=== PATIENT | male | born 1970 | race Asian ===

== ENCOUNTER 2020-11-01 11:15 | Outpatient (REF) | payer OTHER, SELFPAY ==
--- NOTE | ~2020-11-01 | XR_ITS ---
EXAMINATION: XR LUMBAR SPINE XR SACROILIAC JOINTS CLINICAL INFORMATION: Lower back pain. Left-sided sciatica. COMPARISON: None. TECHNIQUE: AP, lateral, and coned-down views of the lumbar spine. AP and bilateral Judet views of the sacroiliac joints. FINDINGS: Lumbar Spine: Normal vertebral body alignment. Minimal right-sided loss of vertebral body height at L4, which could represent an age-indeterminant endplate compression fracture. No additional loss of vertebral body height. Mild loss of intervertebral disc height with tiny endplate osteophytes at L5-S1. No lytic or blastic osseous lesion. No abnormal soft tissue calcification. Sacroiliac Joints: No acute fracture or dislocation. No joint space narrowing or marginal osteophytes. No sclerosis. No cystic change. No abnormal soft tissue calcification. XR/XR sacroiliac joint min 3V IMPRESSION: LUMBAR SPINE: Minimal right-sided loss of vertebral body height at L4, which could represent an age indeterminate endplate additional fracture. Minimal degenerative disc disease at L5-S1. SACROILIAC JOINTS: Unremarkable examination.
--- NOTE | ~2020-11-01 | XR_ITS ---
EXAMINATION: XR LUMBAR SPINE XR SACROILIAC JOINTS CLINICAL INFORMATION: Lower back pain. Left-sided sciatica. COMPARISON: None. TECHNIQUE: AP, lateral, and coned-down views of the lumbar spine. AP and bilateral Judet views of the sacroiliac joints. FINDINGS: Lumbar Spine: Normal vertebral body alignment. Minimal right-sided loss of vertebral body height at L4, which could represent an age-indeterminant endplate compression fracture. No additional loss of vertebral body height. Mild loss of intervertebral disc height with tiny endplate osteophytes at L5-S1. No lytic or blastic osseous lesion. No abnormal soft tissue calcification. Sacroiliac Joints: No acute fracture or dislocation. No joint space narrowing or marginal osteophytes. No sclerosis. No cystic change. No abnormal soft tissue calcification. XR/XR lumbar spine 2-3V IMPRESSION: LUMBAR SPINE: Minimal right-sided loss of vertebral body height at L4, which could represent an age indeterminate endplate additional fracture. Minimal degenerative disc disease at L5-S1. SACROILIAC JOINTS: Unremarkable examination.
[2020-11-01 12:01] LABS: MANUAL DIFF FLAG NO
[2020-11-01 12:10] LABS: Basophils Absolute Auto 0.1 X10*3/uL (0.0-0.2); Basophils Percent Auto 0.8 % (0-2); Eosinophils Absolute Auto 0.2 X10*3/uL (0.0-0.4); Eosinophils Percent Auto 2.3 % (0-4); Hematocrit 46.1 % (42-52); Hemoglobin 15.4 g/dl (14.0-18.0); Imm Gran Abs Auto 0.01 X10*3/uL (0.00-0.03); Imm Gran Pct Auto 0.2 % (0.0-0.4); Lymphocytes Absolute Auto 2.4 X10*3/uL (1.2-4.9); Lymphocytes Percent Auto 35.9 % (20-40); Mean Corpuscular HGB Conc 33.4 g/dl (31.0-36.0); Mean Corpuscular Hemoglobin 28.6 pg (27.0-33.0); Mean Corpuscular Volume 85.7 fL (80-98); Mean Platelet Volume 10.5 fL (9.4-12.4); Monocytes Absolute Auto 0.4 X10*3/uL (0.1-1.2); Monocytes Percent Auto 6.3 % (2-11); Neutrophils Absolute Auto 3.6 X10*3/uL (2.0-8.3); Neutrophils Percent Auto 54.5 % (45-73); Platelet Count 290 X10*3/uL (160-400); Red Blood Count 5.38 X10*6/uL (4.60-5.80); Red Cell Distribution Width 12.4 % (11.0-16.0); White Blood Count 6.6 X10*3/uL (4.8-10.8)
[2020-11-01 12:19] LABS: Glucose Urine UA NEG (NEG); Leukocyte Esterase Urine NEG (NEG); Nitrite Urine NEG (NEG); Specific Gravity - Urine 1.025 (1.005-1.025); Urine Blood TRACE (NEG); Urine Ketones NEG (NEG); Urine Protein NEG (NEG-TRACE)
[2020-11-01 12:25] LABS: Appearance Urine CLEAR; Color Urine YELLOW
[2020-11-01 12:38] LABS: Alanine Aminotransferase 35 U/L (0-40); Albumin Level 5.1 g/dL (3.5-5.0); Alkaline Phosphatase 99 U/L (39-117); Anion Gap 14 (12-20); Aspartate Amino Transferase 41 U/L (5-37); Blood Urea Nitrogen 14 mg/dL (9-16); Calcium 10.3 mg/dL (8.4-10.2); Carbon Dioxide 26 mmol/L (22-29); Chloride 110 mmol/L (96-108); Cholesterol 167 mg/dL; Estimated Glomerular Filt Rate > 60; Glucose Fasting 79 mg/dL (60-99); HDL Cholesterol 51 mg/dL; LDL Cholesterol Calculated 99 mg/dl; Sodium 146 mmol/L (135-145); Total Protein 8.1 g/dL (6.5-8.0); Triglycerides 89 mg/dL
[2020-11-01 13:00] LABS: Mucus Urine 2+ /LPF; RBC Urine 0-2 /HPF (0); Squamous Epithelial Cell Urine 2+ /LPF; TSH reflex Free T4 0.86 uIU/mL (0.32-4.0); WBC Urine 0-2 /HPF (0-4)
[2020-11-01 13:07] LABS: Erythrocyte Sedimentation Rate 3 MM/HR (0-15)
== END 2020-11-01 11:16 | disposition home or self-care (01) ==
LOC: HO.LAB 11:15
PROVIDERS: PCP Internal Medicine; Visit Provider Internal Medicine
DX: M54.42 Lumbago with sciatica, left side (principal); E78.1 Pure hyperglyceridemia; E66.3 Overweight; M10.9 Gout, unspecified
CPT/HCPCS: 36415; 72100; 72202; 80053; 80061; 81001; 84443; 84550; 85025; 85652

== ENCOUNTER → 2021-08-16 09:02 | Outpatient (BNVA) | payer OTHER, SELFPAY | PROVIDERS: PCP Internal Medicine; Referring Provider Internal Medicine; Visit Provider Nurse Practitioner Family | DX: Z13.89 Encounter for screening for other disorder (principal) ==

== ENCOUNTER 2021-10-25 08:08 | Outpatient (REF) | payer OTHER, SELFPAY ==
[2021-10-25 09:12] LABS: Alanine Aminotransferase 28 U/L (0-40); Albumin Level 4.7 g/dL (3.5-5.0); Alkaline Phosphatase 110 U/L (39-117); Anion Gap 12 (12-20); Aspartate Amino Transferase 24 U/L (5-37); Bilirubin Total 0.5 mg/dL (0.0-1.0); Blood Urea Nitrogen 12 mg/dL (9-16); Calcium 9.8 mg/dL (8.4-10.2); Carbon Dioxide 29 mmol/L (22-29); Chloride 105 mmol/L (96-108); Cholesterol 158 mg/dL; Estimated Glomerular Filt Rate > 60; Glucose Fasting 105 mg/dL (60-99); HDL Cholesterol 45 mg/dL; LDL Cholesterol Calculated 87 mg/dl; Potassium 4.5 mmol/L (3.3-5.1); Sodium 141 mmol/L (135-145); Total Protein 7.7 g/dL (6.5-8.0); Triglycerides 134 mg/dL; Uric Acid 7.9 mg/dL (3.4-7.0)
== END 2021-10-25 08:09 | disposition home or self-care (01) ==
LOC: HO.LAB 08:08
PROVIDERS: PCP Internal Medicine; Visit Provider Internal Medicine
DX: M10.9 Gout, unspecified (principal); E78.00 Pure hypercholesterolemia, unspecified
CPT/HCPCS: 36415; 80053; 80061; 84550

== ENCOUNTER 2022-03-06 08:39 | Day surgery (SDC) | payer OTHER, SELFPAY ==
[2022-03-06 09:14] VITALS: BP 157/79; PULSE 68; RESP 16; TEMP 36.9; O2SAT 100; BMI 30.2
--- NOTE | 2022-03-06 09:14 | P.CONAN_ITS ---
[facility] Active Problems Active Problems: All Active Problems (Updated 10/29/21 @ 10:42 by Jarad Jones MD) Elevated blood pressure reading (Acute) Articular gout (Acute) Hypertriglyceridemia (Acute) Overweight (BMI 25.0-29.9) (Acute) Left-sided low back pain with sciatica (Acute) Past Medical History Medical History Articular gout Hypertriglyceridemia Left-sided low back pain with sciatica Overweight (BMI 25.0-29.9) Family History Family History Mother No problems noted. Father No problems noted. 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 [employer] Cognitive needs: No Hearing needs: No Vision needs: No Meds Allergies Allergy/AdvReac Type Severity Reaction Status Date / Time No Known Allergies Allergy Verified 03/06/22 09:14 Exam Exam Date and Time: March 06, 2022 0914 Airway Mallampati Class: II TM Dist: >3cm Neck ROM: Full Denture: Upper Partial: Lower Loose/Missing/Broken Teeth: Yes, Upper and Lower Heart: RRR Lungs: CTA Assessment and Plan Assessment Anesthesia Assessment: Anesthesia Plan Discussed and Chart Reviewed Final Anesthetic Review History of Problems with Anesthesia: No NPO: Yes ASA Class: II Final Preanesthetic Review: Meds/Allgs Chart Reviewed, Consent Obtained/Reviewed and Anes Risks/Benef Reviewed Patient Risk: Low Procedure Risk: Low Anesthetic Plan Anesthetic Plan: MAC: Disposition: Standard PACU
--- NOTE | 2022-03-06 09:14 | P.HPSUR_ITS ---
Pre-Procedural Eval Section A Date of Service: 03/06/22 Section B Chief Complaint: screening Relevant Family History (Specify if Yes): No Relevant Social History: None Present Medications: see Short Stay Collaborative assessment Medical History: Significant History (Articular gout Hypertriglyceridemia Left- sided low back pain with sciatica Overweight (BMI 25.0-29.9)) History of Previous Operations: No relevant previous surgery Allergies: Allergies Allergy/AdvReac Type Severity Reaction Status Date / Time No Known Allergies Allergy Verified 03/06/22 09:14 Review of Systems Sugical H&P ROS: Negative: Constitution, Cardiovascular, Respiratory, Neurologic al, Psychiatric, Hem-Onc, Allergic/Immunologic, Gastrointestinal, Genitourinary, Musculoskeletal, Integumentary, Endocrine and Eyes/Ears/Nose/Throat Exam Surgical H&P Exam: Normal: HEENT, Normal: Heart, Normal: Lungs, Normal: Extremities, Normal: Abdomen, Normal: Skin and Normal: Neurological Plan Diagnosis/Plan: Unchanged I have reviewed the history and physical and performed a pertinent physical examination on my patient. No changes have occurred unless specified.
[2022-03-06] MEDS: Lactated Ringers 1,000 ML 80 ML IVCONT (09:59)
--- NOTE | 2022-03-06 10:12 | P.OP_ITS ---
Operative Note Operative Note Date of Service: 03/06/22 Narrative: Operative Information Procedure Description: Colonoscopy Indication: screening Anesthesia: MAC COLONOSCOPY Instrument: Olympus variable stiffness pediatric scope 190L Colonoscopy Monitoring: Vital signs and clinical assessment, continuous EKG monitoring, Pulse oximetry, Carbon Dioxide monitoring and blood pressure monitoring were done throughout the procedure. Colon withdrawal time was 8 minutes. Procedure: The patient was placed in the left lateral decubitis position and pre-procedure medications were administered. After a digital rectal examination of the ano-rectum, the video colonoscope was inserted into the rectum and advanced through the colon to the cecum/TI. The colonoscope was slowly withdrawn in a retrograde panoramic fashion and the colon mucosa was carefully examined including a retroflexed view of the rectum. Findings and interventions are described below. Procedure Difficulty: easy Findings: Terminal Ileum- lymphoid hyperplasia noted Cecum: 8-10 mm sessile polyp removed with cold forceps Ascending Colon: normal Transverse Colon -normal Descending Colon:normal Sigmoid Colon: normal Rectum: Retroflexion with small internal hemorrhoids, grade I, x3 diminutive polyps 2-4 mm removed with cold forceps Anorectum - normal Colon preparation: [place] Bowel Preparation Scale Right colon; 2 Transverse colon: 3 Left colon; 3 (0 = Unprepared colon segment with mucosa not seen due to solid stool that cannot be cleared. 1 = Portion of mucosa of the colon segment seen, but other areas of the colon segment not well seen due to staining, residual stool and/or opaque liquid. 2 = Minor amount of residual staining, small fragments of stool and/or opaque liquid, but mucosa of colon segment seen well. 3 = Entire mucosa of colon segment seen well with no residual staining, small fragments of stool or opaque liquid) Impression and Post Procedure Diagnosis: polyps internal hemorrhoids Plan: High fiber diet leaflet Avoid straining at stool, epsom salts and sitz bath, anusol supps or cream Repeat Colonoscopy in 5 years due to polyps (cecal polyp had adenomatous features by kudo markings) or earlier if clinically indicated Above findings were reviewed with the patient and relevant handouts were provided if indicated.
[2022-03-06 10:15] VITALS: BP 99/60; PULSE 69; RESP 16; TEMP 36.1; O2SAT 100
[2022-03-06 10:30] VITALS: BP 106/68; PULSE 69; RESP 18; TEMP 36.4; O2SAT 98
== END 2022-03-06 11:08 | disposition home or self-care (01) ==
PROVIDERS: PCP Internal Medicine; Visit Provider Internal Medicine Gastroenterology
PROC: 0DJD8ZZ Inspection of Lower Intestinal Tract, Via Natural or Artificial Opening Endoscopic (ICD-10-PCS; CPT 45378; principal; 2022-03-06 10:00)
DX: Z12.11 Encounter for screening for malignant neoplasm of colon (principal); D12.0 Benign neoplasm of cecum; K62.1 Rectal polyp; K64.0 First degree hemorrhoids; M10.9 Gout, unspecified; M54.42 Lumbago with sciatica, left side; E78.1 Pure hyperglyceridemia; E66.3 Overweight; Z68.28 Body mass index [BMI] 28.0-28.9, adult; Z79.899 Other long term (current) drug therapy
CPT/HCPCS: 45380; 88305

== ENCOUNTER 2022-03-15 10:33 | Outpatient (REF) | payer OTHER, SELFPAY ==
[2022-03-15 10:48] LABS: MANUAL DIFF FLAG NO
[2022-03-15 10:57] LABS: Basophils Absolute Auto 0.1 X10*3/uL (0.0-0.2); Basophils Percent Auto 1.1 % (0-2); Eosinophils Absolute Auto 0.2 X10*3/uL (0.0-0.4); Eosinophils Percent Auto 4.3 % (0-4); Hematocrit 47.4 % (42.0-52.0); Imm Gran Abs Auto 0.01 X10*3/uL (0.00-0.03); Imm Gran Pct Auto 0.2 % (0.0-0.4); Lymphocytes Absolute Auto 2.4 X10*3/uL (1.2-4.9); Lymphocytes Percent Auto 44.7 % (20-40); Mean Corpuscular HGB Conc 33.8 g/dl (31.0-36.0); Mean Corpuscular Hemoglobin 28.4 pg (27.0-33.0); Mean Platelet Volume 10.1 fL (9.4-12.4); Monocytes Absolute Auto 0.3 X10*3/uL (0.1-1.2); Monocytes Percent Auto 5.9 % (2-11); Neutrophils Absolute Auto 2.4 x10*3/uL (2.0-8.3); Neutrophils Percent Auto 43.8 % (45-73); Platelet Count 272 X10*3/uL (160-400); Red Blood Count 5.64 X10*6/uL (4.60-5.80); Red Cell Distribution Width 12.3 % (11.0-16.0); White Blood Count 5.4 X10*3/uL (4.8-10.8)
[2022-03-15 11:07] LABS: Estimated Average Glucose 128 mg/dL; Hemoglobin A1c % 6.1 %
[2022-03-15 11:11] LABS: Appearance Urine Clear; Color Urine Yellow; Glucose Urine UA Negative (Negative); Leukocyte Esterase Urine Negative (Negative); Nitrite Urine Negative (Negative); PH 5.5 (5.0-9.0); Urine Blood Negative (Negative); Urine Ketones Negative (Negative); Urine Protein Negative (Neg-Trace)
[2022-03-15 11:50] LABS: Alanine Aminotransferase 36 U/L (0-40); Albumin Level 4.6 g/dL (3.5-5.0); Alkaline Phosphatase 100 U/L (39-117); Anion Gap 15 (12-20); Aspartate Amino Transferase 28 U/L (5-37); Bilirubin Total 0.8 mg/dL (0.0-1.0); Blood Urea Nitrogen 10 mg/dL (9-16); Calcium 9.6 mg/dL (8.4-10.2); Carbon Dioxide 26 mmol/L (22-29); Chloride 105 mmol/L (96-108); Cholesterol 161 mg/dL; Estimated Glomerular Filt Rate > 60; Glucose Fasting 87 mg/dL (60-99); HDL Cholesterol 44 mg/dL; LDL Cholesterol Calculated 81 mg/dl; Potassium 3.9 mmol/L (3.3-5.1); Prostate Specific Antigen 0.68 ng/mL (<0.05-4.0); Sodium 142 mmol/L (135-145); TSH reflex Free T4 0.82 uIU/mL (0.32-4.0); Total Protein 7.4 g/dL (6.5-8.0); Triglycerides 183 mg/dL; Uric Acid 7.3 mg/dL (3.4-7.0); Vitamin D 25-OH Total 37.3 ng/mL (>30)
== END 2022-03-15 10:34 | disposition home or self-care (01) ==
LOC: HO.LAB 10:33
PROVIDERS: PCP Internal Medicine; Visit Provider Internal Medicine
DX: E78.00 Pure hypercholesterolemia, unspecified (principal); I10 Essential (primary) hypertension; M10.9 Gout, unspecified; E55.9 Vitamin D deficiency, unspecified; R73.9 Hyperglycemia, unspecified; N40.0 Benign prostatic hyperplasia without lower urinary tract symptoms; Z12.5 Encounter for screening for malignant neoplasm of prostate
CPT/HCPCS: 36415; 80053; 80061; 81003; 82306; 83036; 84153; 84443; 84550; 85025

== ENCOUNTER 2022-07-09 07:38 | Outpatient (REF) | payer OTHER, SELFPAY ==
[2022-07-09 07:47] LABS: MANUAL DIFF FLAG NO
[2022-07-09 08:39] LABS: Basophils Absolute Auto 0.1 X10*3/uL (0.0-0.2); Basophils Percent Auto 1.2 % (0-2); Eosinophils Absolute Auto 0.2 X10*3/uL (0.0-0.4); Eosinophils Percent Auto 4.1 % (0-4); Hematocrit 45.8 % (42.0-52.0); Hemoglobin 15.7 g/dl (14.0-18.0); Imm Gran Abs Auto 0.01 X10*3/uL (0.00-0.03); Imm Gran Pct Auto 0.2 % (0.0-0.4); Lymphocytes Absolute Auto 2.4 X10*3/uL (1.2-4.9); Lymphocytes Percent Auto 41.1 % (20-40); Mean Corpuscular HGB Conc 34.3 g/dl (31.0-36.0); Mean Corpuscular Hemoglobin 28.7 pg (27.0-33.0); Mean Corpuscular Volume 83.7 fL (80.0-98.0); Mean Platelet Volume 10.5 fL (9.4-12.4); Monocytes Absolute Auto 0.3 X10*3/uL (0.1-1.2); Monocytes Percent Auto 5.6 % (2-11); Neutrophils Absolute Auto 2.8 x10*3/uL (2.0-8.3); Neutrophils Percent Auto 47.8 % (45-73); Platelet Count 275 X10*3/uL (160-400); Red Blood Count 5.47 X10*6/uL (4.60-5.80); Red Cell Distribution Width 11.9 % (11.0-16.0); White Blood Count 5.9 X10*3/uL (4.8-10.8)
[2022-07-09 08:47] LABS: Estimated Average Glucose 137 mg/dL; Hemoglobin A1c % 6.4 %
[2022-07-09 09:18] LABS: Alanine Aminotransferase 36 U/L (0-40); Albumin Level 4.8 g/dL (3.5-5.0); Alkaline Phosphatase 90 U/L (39-117); Anion Gap 14 (12-20); Aspartate Amino Transferase 32 U/L (5-37); Bilirubin Total 0.7 mg/dL (0.0-1.0); Blood Urea Nitrogen 15 mg/dL (9-16); Carbon Dioxide 28 mmol/L (22-29); Chloride 107 mmol/L (96-108); Cholesterol 176 mg/dL; Estimated Glomerular Filt Rate > 60; Glucose Fasting 102 mg/dL (60-99); HDL Cholesterol 44 mg/dL; LDL Cholesterol Calculated 97 mg/dl; Potassium 4.6 mmol/L (3.3-5.1); Sodium 144 mmol/L (135-145); Total Protein 7.4 g/dL (6.5-8.0); Triglycerides 176 mg/dL; Uric Acid 8.1 mg/dL (3.4-7.0)
[2022-07-09 09:39] LABS: TSH reflex Free T4 1.11 uIU/mL (0.32-4.0); Vitamin D 25-OH Total 37.5 ng/mL (>30)
[2022-07-09 09:47] LABS: Appearance Urine Cloudy; Color Urine Yellow; Glucose Urine UA Negative (Negative); Leukocyte Esterase Urine Negative (Negative); Nitrite Urine Negative (Negative); PH 5.5 (5.0-9.0); Specific Gravity - Urine 1.015 (1.005-1.025); Urine Blood Negative (Negative); Urine Ketones Negative (Negative); Urine Protein Negative (Neg-Trace)
== END 2022-07-09 07:39 | disposition home or self-care (01) ==
LOC: HO.LAB 07:38
PROVIDERS: PCP Internal Medicine; Visit Provider Internal Medicine
DX: E55.9 Vitamin D deficiency, unspecified (principal); M10.9 Gout, unspecified; R30.0 Dysuria; E78.00 Pure hypercholesterolemia, unspecified; E11.9 Type 2 diabetes mellitus without complications; I10 Essential (primary) hypertension
CPT/HCPCS: 36415; 80053; 80061; 81003; 82306; 83036; 84443; 84550; 85025

== ENCOUNTER 2022-11-14 07:31 | Outpatient (REF) | payer OTHER, SELFPAY ==
[2022-11-14 07:49] LABS: MANUAL DIFF FLAG NO
[2022-11-14 08:24] LABS: Basophils Absolute Auto 0.1 X10*3/uL (0.0-0.2); Eosinophils Absolute Auto 0.2 X10*3/uL (0.0-0.4); Eosinophils Percent Auto 3.8 % (0-4); Hematocrit 45.3 % (42.0-52.0); Hemoglobin 15.5 g/dl (14.0-18.0); Imm Gran Abs Auto 0.02 X10*3/uL (0.00-0.03); Imm Gran Pct Auto 0.3 % (0.0-0.4); Lymphocytes Absolute Auto 2.4 X10*3/uL (1.2-4.9); Lymphocytes Percent Auto 40.2 % (20-40); Mean Corpuscular HGB Conc 34.2 g/dl (31.0-36.0); Mean Corpuscular Volume 84.8 fL (80.0-98.0); Mean Platelet Volume 10.7 fL (9.4-12.4); Monocytes Absolute Auto 0.4 X10*3/uL (0.1-1.2); Monocytes Percent Auto 6.3 % (2-11); Neutrophils Absolute Auto 2.8 x10*3/uL (2.0-8.3); Neutrophils Percent Auto 48.4 % (45-73); Platelet Count 237 X10*3/uL (160-400); Red Blood Count 5.34 X10*6/uL (4.60-5.80); White Blood Count 5.9 X10*3/uL (4.8-10.8)
[2022-11-14 09:07] LABS: Alanine Aminotransferase 49 U/L (0-40); Albumin Level 4.6 g/dL (3.5-5.0); Alkaline Phosphatase 120 U/L (39-117); Anion Gap 18 (12-20); Aspartate Amino Transferase 38 U/L (5-37); Bilirubin Total 0.8 mg/dL (0.0-1.0); Blood Urea Nitrogen 14 mg/dL (9-16); Calcium 9.8 mg/dL (8.4-10.2); Carbon Dioxide 22 mmol/L (22-29); Chloride 107 mmol/L (96-108); Cholesterol 194 mg/dL; Estimated Glomerular Filt Rate > 60; Glucose Fasting 87 mg/dL (60-99); HDL Cholesterol 50 mg/dL; LDL Cholesterol Calculated 125 mg/dl; Potassium 3.9 mmol/L (3.3-5.1); Sodium 143 mmol/L (135-145); Total Protein 7.7 g/dL (6.5-8.0); Triglycerides 95 mg/dL; Uric Acid 8.9 mg/dL (3.4-7.0)
[2022-11-14 09:12] LABS: Erythrocyte Sedimentation Rate 2 MM/HR (0-15)
[2022-11-14 09:13] LABS: Vitamin D 25-OH Total 43.6 ng/mL (>30)
[2022-11-14 09:52] LABS: Appearance Urine Clear; Color Urine Yellow; Glucose Urine UA Negative (Negative); Leukocyte Esterase Urine Negative (Negative); Nitrite Urine Negative (Negative); PH 5.5 (5.0-9.0); Specific Gravity - Urine 1.015 (1.005-1.025); Urine Blood Negative (Negative); Urine Ketones Negative (Negative); Urine Protein Negative (Neg-Trace)
== END 2022-11-14 07:32 | disposition home or self-care (01) ==
LOC: HO.LAB 07:31
PROVIDERS: PCP Internal Medicine; Visit Provider Internal Medicine
DX: M10.9 Gout, unspecified (principal); E55.9 Vitamin D deficiency, unspecified; I10 Essential (primary) hypertension; R30.0 Dysuria; E78.00 Pure hypercholesterolemia, unspecified
CPT/HCPCS: 36415; 80053; 80061; 81003; 82306; 84550; 85025; 85652

== ENCOUNTER 2022-11-20 11:19 | Outpatient (AMB) | payer OTHER, SELFPAY ==
[2022-11-20 11:21] VITALS: BP 130/70; PULSE 60; O2SAT 98; BMI 29.7
--- NOTE | 2022-11-20 11:21 | MHC.PC.OV ---
Vital Signs 11/20/22 11:21 Height 5 ft 5 in Weight 178 lb 6 oz BMI 29.7 BP 130/70 Blood Pressure Location Lt brachial Position Sitting Pulse 60 Pulse Source Pulse Oximeter Pulse Oximetry (%) 98 Oxygen Delivery Method Room Air Intake Visit Reasons: 4 month f/u Cyber Legal Advisor Required: No Accompanied by: Self / Same As Patient Allergies No Known Allergies Allergy (Verified 11/20/22 11:26) Medication List - Last Reconciled 11/20/22 by Jarad Jones MD gemfibrozil 600 mg PO BEDTIME 90 days Tobacco use date assessed: 11/20/22 Dental Screening Dental Screen Date: 11/20/22 Did you have a dental visit in the last 12 months?: No Did you have a dental problem in the last 6 months where you did not have access to dental care?: No Was dental information given to patient?: Patient has dentist HPI 4 month f/u HPI Details Patient comes in today for his follow up visit States that he feels okay He denies any headaches or dizziness Denies any chest pains, no SOB No nausea/vomiting, no abdominal pain No change in bowel habits noted Was on vacation in the [facility] for about 3 weeks recently - has gained a lot of weight as a result States that he still has the nodular lesion on the dorsal aspect of his left wrist that he states has been there for a few months now States that the nodule does not really hurt although it feels slightly sore at times Had his follow up labs done last week - to discuss his results [facility] Medical History Articular gout Hypertriglyceridemia Impaired fasting glucose Left-sided low back pain with sciatica Overweight (BMI 25.0-29.9) Tubular adenoma Surgical History H/O colonoscopy Family History Mother No problems noted. Father No problems noted. 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 1. Little interest or pleasure in doing things: not at all 2. Feeling down, depressed, or hopeless: not at all 3. Trouble falling or staying asleep, or sleeping too much: not at all 4. Feeling tired or having little energy: not at all 5. Poor appetite or overeating: not at all 6. Feeling bad about yourself - or that you are a failure or have let yourself or your family down: not at all 7. Trouble concentrating on things, such as reading the newspaper or watching television: not at all 8. Moving or speaking so slowly that other people could have noticed. Or the opposite - being so fidgety or restless that you have been moving around a lot more than usual: not at all 9. Thoughts that you would be better off or of hurting yourself in some way: not at all Total score: 0 Depression Screening Interpretation: Negative 63166 - PHQ-9 Billing: Yes Source: Developed by Drs. Torsten Gill, Jill Powell, Joesph Francisco and colleagues, with an educational lenny from [email or web address] Thrive Questionnaire Date Thrive assessed: 11/20/22 I am a: Patient What is your living situation today?: I have a steady place to live Within the past 12 months, did the food you bought not last and you didn't have the money to get more?: Never true Within the past 12 months, did you worry whether your food would run out before you got money to buy more?: Never true Do you have trouble paying for medicines?: No Do you have trouble getting transportation to medical appointments?: No Do you have trouble paying your heating and electricity bill?: No Do you have trouble taking care of your child, family member or friend?: No Do you have trouble with day-to-day activities such as bathing, preparing meals, shopping, managing finances, etc.?: No Are you currently unemployed and looking for a job?: No Are you interested in more education?: No Please select the resources that you would like help with: None Currently or been in a relationship where the following occur: no concerns reported AUDIT C Alcohol Use Questionnaire (AUDIT-C) 1. How often do you have a drink containing alcohol?: Never 3. How often do you have six or more drinks on one occasion?: Never Total Score: 0 Score Reviewed/Action Taken: Yes JULISSA-7 AMB Questionnaire JULISSA-7 Date JULISSA - 7 assessed: 11/20/22 Feeling nervous, anxious, or on edge: 0 = Not at all Not being able to stop or control worryin = Not at all Worrying too much about different things: 0 = Not at all Trouble relaxin = Not at all Being so restless that it is hard to sit still: 0 = Not at all Becoming easily annoyed or irritable: 0 = Not at all Feeling afraid as if something awful might happen: 0 = Not at all Total JULISSA-7 score (0-4 normal; 5-9 mild; 10-14 moderate; 15-21 severe): 0 Source: Developed by Drs. Torsten Gill, Jill Powell, Joesph Francisco and colleagues, with an educational lenny from [employer] ([employer]). Review of Systems Const Reports difficulty sleeping (at times - works nights), Denies fatigue, Denies fever(s) and Denies headache(s) ENT Denies dysphagia, Denies dizziness, Denies otalgia, Denies headache(s), Denies neck pain and Denies sore throat Card Denies chest pain, Denies palpitations and Denies dyspnea Resp Denies cough and Denies dyspnea GI Denies abdominal pain, Denies constipation, Denies dysphagia, Denies heartburn, Denies diarrhea, Denies nausea and Denies vomiting Denies dysuria, Denies nocturia and Denies urinary frequency Musc Reports back pain (on and off, over the lower back; mild) and Denies neck pain Skin/Breast Details: (+) nodular lesion on the dorsal aspect of the left wrist Neuro Denies dizziness and Denies headache(s) Endo Denies fatigue and Denies palpitations Physical exam (Primary Care) Vital Signs: Oxygen Delivery Method Room Air 11/20/22 11:21 BMI result Body Mass Index 29.7 Tobacco/Smoking Status: Tobacco use Status Tobacco use date assessed 07/17/22 07/17/22 10:08 Patient Tobacco Use Status Never used Tobacco 07/17/22 10:05 e-Cigarette/Vaping Use Never Used 07/17/22 10:08 Depression Screening Interpretation: Negative Thrive Assessment: Date of Thrive Assessment Date Thrive assessed 07/17/22 07/17/22 10:08 Currently or been in a relationship where the following occur: no concerns reported Const General: no acute distress and alert HENMT Ears: TM's normal bilaterally and EAC's normal Throat: Yes posterior oropharynx normal and Yes tonsils normal (no TP congestion) Neck Neck: Yes no lymphadenopathy and Yes supple Resp Auscultation: clear to auscultation bilaterally, no rales and no wheezes Cardio Rate: regular rate Rhythm: regular rhythm Heart sounds: no murmurs GI Palpation (GI): Soft to palpation and nontender Auscultation: normal bowel sounds Back/Spine/Pelvis Thoracic/Lumbar Spine: lumbar spinal tenderness (mild) Skin Other: (+) soft, non-tender, nodular lesion on the dorsal aspect of the left wrist Extrem General: Yes no clubbing, cyanosis or edema Results Reviewed Results Reviewed: Laboratory Tests 11/14/22 11/14/22 11/14/22 07:40 07:47 07:47 WBC 5.9 Hgb 15.5 Hct 45.3 Plt Count 237 ESR 2 Sodium Potassium Creatinine Estimated GFR Fasting Glucose Uric Acid Calcium AST ALT Triglycerides Cholesterol LDL Cholesterol, Calc HDL Cholesterol 25-OH Vitamin D Total Ur Specific [place] 1.015 Urine Protein Negative Urine Glucose (UA) Negative Urine Blood Negative 11/14/22 07:47 WBC Hgb Hct Plt Count ESR Sodium 143 Potassium 3.9 Creatinine 0.80 Estimated GFR > 60 Fasting Glucose 87 Uric Acid 8.9 H Calcium 9.8 AST 38 H ALT 49 H Triglycerides 95 Cholesterol 194 LDL Cholesterol, Calc 125 HDL Cholesterol 50 25-OH Vitamin D Total 43.6 Ur Specific [place] Urine Protein Urine Glucose (UA) Urine Blood Assessment and Plan Assessment & Plan (1) Hypertriglyceridemia: Code(s): E78.1 - Pure hyperglyceridemia Plan: Results of his labs done last week reviewed and discussed with patient - is cautioned that his cholesterol numbers have again increased from previous, especially his LDL cholesterol, which has gone up by over 25 points Reinforced low cholesterol diet Continue Gemfibrozil 600 mg Q HS for now Will recheck his labs in 4 months for follow up (2) Elevated blood pressure reading: Code(s): R03.0 - Elevated blood-pressure reading, without diagnosis of hypertension Plan: Reinforced low sodium diet; goal is systolic BP of 120 mm or less Patient is advised to continue monitoring his blood pressure regularly (3) Impaired fasting glucose: Code(s): R73.01 - Impaired fasting glucose Plan: HgbA1c was at 6.4% when last checked a few months ago Reinforced low calorie diet/exercise as tolerated His FBS appears to have improved from previous and is at 87 mg/dl on his recent labs Will recheck his FBS and HgbA1c in 4 months for follow up (4) Articular gout: Code(s): M10.9 - Gout, unspecified Plan: Cautioned that his serum uric acid level has increased again to 8.9 on his recent labs (was at 7.3 previously) Reinforced low purine diet Advised that the nodular lesion on his left wrist does not appear to be due to gout and may actually be a sebaceous or dermoid cyst Have considered starting him on urate-lowering Rx previously if his numbers do not improve or if patient starts experiencing frequent flare ups of gout As his uric acid level has gone back up significantly again, will try starting him on Mitigare 0.6 mg QD Will recheck his serum uric acid level in 4 months for follow up (5) Left-sided low back pain with sciatica: Code(s): M54.42 - Lumbago with sciatica, left side Qualifiers: Chronicity: unspecified Sciatica laterality: sciatica of left side Qualified Code(s): M54.42 - Lumbago with sciatica, left side Plan: Lumbar spine x-rays done last year revealed (+) minimal degenerative disc disease at L5-S1; SI joint x-rays were normal Went to physical therapy for a while, with (+) improvement of his symptoms States that his lower back has not been bothering him lately Will follow up with physical therapy as scheduled or as needed (goes to [facility] in [place] for his physical therapy - closer to home) States that he previously bought a massager and has been using it on his lower back lately; states that is seems to be helping a lot (6) Overweight (BMI 25.0-29.9): Code(s): E66.3 - Overweight Plan: Reinforced diet/exercise as tolerated/lose weight - has gained some weight again since his last visit, as he was just recently on vacation in the [facility] for 3 weeks Plan Follow up in 4 months Orders: Orders Comprehensive [place]. Panel Fast 4 Months E78.00 - Pure hypercholesterolemia, unspecified Hemoglobin A1c 4 Months R73.01 - Impaired fasting glucose Lipid Panel 4 Months E78.00 - Pure hypercholesterolemia, unspecified Complete Blood Count Auto Diff 4 Months I10 - Essential (primary) hypertension TSH reflex Free T4 4 Months E78.00 - Pure hypercholesterolemia, unspecified Uric Acid 4 Months M10.9 - Gout, unspecified Vitamin D 25-OH Total 4 Months E55.9 - Vitamin D deficiency, unspecified UA CC w/rflx Micro + Cult 4 Months R30.0 - Dysuria Medications: New colchicine (gout) (Mitigare) 0.6 mg PO DAILY 90 days 90 caps 1RF M10.9 - Gout, unspecified Coding Level of Care Code Est Pt Level 4 (19202) Diagnoses Hypertriglyceridemia E78.1 Elevated blood pressure reading R03.0 Impaired fasting glucose R73.01 Articular gout M10.9 Left-sided low back pain with sciatica M54.42 Chronicity: unspecified Sciatica laterality: sciatica of left side Overweight (BMI 25.0-29.9) E66.3
== END 2022-11-20 11:58 | disposition home or self-care (01) ==
PROVIDERS: PCP Internal Medicine; Visit Provider Internal Medicine
DX: E78.1 Pure hyperglyceridemia (principal); R03.0 Elevated blood-pressure reading, without diagnosis of hypertension; R73.01 Impaired fasting glucose; M10.9 Gout, unspecified; M54.42 Lumbago with sciatica, left side; E66.3 Overweight
CPT/HCPCS: 99214

== ENCOUNTER 2023-03-27 07:55 | Outpatient (REF) | payer OTHER, SELFPAY ==
[2023-03-27 08:09] LABS: MANUAL DIFF FLAG NO
[2023-03-27 08:56] LABS: Estimated Average Glucose 123 mg/dL; Hemoglobin A1c % 5.9 % (<6.0)
[2023-03-27 09:06] LABS: Basophils Absolute Auto 0.1 X10*3/uL (0.0-0.2); Basophils Percent Auto 1.1 % (0-2); Eosinophils Absolute Auto 0.2 X10*3/uL (0.0-0.4); Eosinophils Percent Auto 4.5 % (0-4); Hematocrit 49.4 % (42.0-52.0); Hemoglobin 16.7 g/dl (14.0-18.0); Imm Gran Abs Auto 0.01 X10*3/uL (0.00-0.03); Imm Gran Pct Auto 0.2 % (0.0-0.4); Lymphocytes Absolute Auto 2.2 X10*3/uL (1.2-4.9); Lymphocytes Percent Auto 41.2 % (20-40); Mean Corpuscular HGB Conc 33.8 g/dl (31.0-36.0); Mean Corpuscular Hemoglobin 28.6 pg (27.0-33.0); Mean Corpuscular Volume 84.7 fL (80.0-98.0); Mean Platelet Volume 10.9 fL (9.4-12.4); Monocytes Absolute Auto 0.3 X10*3/uL (0.1-1.2); Monocytes Percent Auto 5.4 % (2-11); Neutrophils Absolute Auto 2.6 x10*3/uL (2.0-8.3); Neutrophils Percent Auto 47.6 % (45-73); Platelet Count 277 X10*3/uL (160-400); Red Blood Count 5.83 X10*6/uL (4.60-5.80); Red Cell Distribution Width 12.4 % (11.0-16.0); White Blood Count 5.4 X10*3/uL (4.8-10.8)
[2023-03-27 09:14] LABS: Appearance Urine Clear; Color Urine Yellow; Glucose Urine UA Negative (Negative); Leukocyte Esterase Urine Negative (Negative); Nitrite Urine Negative (Negative); PH 6.5 (5.0-9.0); Specific Gravity - Urine 1.015 (1.005-1.025); Urine Blood Negative (Negative); Urine Ketones Negative (Negative); Urine Protein Negative (Neg-Trace)
[2023-03-27 09:15] LABS: Alanine Aminotransferase 29 U/L (0-40); Albumin Level 4.8 g/dL (3.5-5.0); Alkaline Phosphatase 94 U/L (39-117); Anion Gap 11 (12-20); Aspartate Amino Transferase 33 U/L (5-37); Bilirubin Total 0.9 mg/dL (0.0-1.0); Blood Urea Nitrogen 10 mg/dL (9-16); Calcium 9.9 mg/dL (8.4-10.2); Carbon Dioxide 29 mmol/L (22-29); Chloride 108 mmol/L (96-108); Cholesterol 142 mg/dL (<200); Estimated Glomerular Filt Rate > 60; Glucose Fasting 89 mg/dL (60-99); HDL Cholesterol 49 mg/dL (>40); LDL Cholesterol Calculated 74 mg/dL (<100); Potassium 4.3 mmol/L (3.3-5.1); Sodium 144 mmol/L (135-145); Triglycerides 96 mg/dL (<150); Uric Acid 8.4 mg/dL (3.4-7.0)
[2023-03-27 09:35] LABS: Vitamin D 25-OH Total 40.1 ng/mL (>30)
== END 2023-03-27 07:56 | disposition home or self-care (01) ==
LOC: HO.LAB 07:55
PROVIDERS: PCP Internal Medicine; Visit Provider Internal Medicine
DX: E78.00 Pure hypercholesterolemia, unspecified (principal); R73.01 Impaired fasting glucose; E55.9 Vitamin D deficiency, unspecified; I10 Essential (primary) hypertension; R30.0 Dysuria; M10.9 Gout, unspecified
CPT/HCPCS: 36415; 80053; 80061; 81003; 82306; 83036; 84443; 84550; 85025

== ENCOUNTER 2023-05-19 14:58 | Outpatient (AMB) | payer OTHER, SELFPAY ==
[2023-05-19 15:22] VITALS: BP 142/94; PULSE 69; O2SAT 97
--- NOTE | 2023-05-19 15:22 | MHC.PC.OV ---
Vital Signs 05/19/23 15:22 Height 5 ft 5 in Weight 180 lb 6 oz BMI 30.0 BP 142/94 H Blood Pressure Location Lt brachial Position Sitting Pulse 69 Pulse Source Pulse Oximeter Pulse Oximetry (%) 97 Oxygen Delivery Method Room Air Intake Visit Reasons: 4 month f/u Cert Occupational Therapy Asst Required: No Accompanied by: Self / Same As Patient Allergies No Known Allergies Allergy (Verified 05/19/23 16:03) Medication List - Last Reconciled 05/19/23 by Jarad Jones MD gemfibrozil 600 mg PO BEDTIME 90 days Tobacco use date assessed: 05/19/23 Dental Screening Dental Screen Date: 05/19/23 Did you have a dental visit in the last 12 months?: No Did you have a dental problem in the last 6 months where you did not have access to dental care?: No Was dental information given to patient?: No HPI 4 month f/u HPI Details Patient comes in today for his follow up visit States that he feels okay He denies any headaches or dizziness Denies any chest pains, no SOB No nausea/vomiting, no abdominal pain No change in bowel habits noted Had his follow up labs done last month - to discuss his results [facility] Medical History Impaired fasting glucose Tubular adenoma Overweight (BMI 25.0-29.9) Left-sided low back pain with sciatica Hypertriglyceridemia Articular gout Surgical History H/O colonoscopy Family History Mother No problems noted. Father No problems noted. 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 1. Little interest or pleasure in doing things: not at all 2. Feeling down, depressed, or hopeless: not at all 3. Trouble falling or staying asleep, or sleeping too much: not at all 4. Feeling tired or having little energy: not at all 5. Poor appetite or overeating: not at all 6. Feeling bad about yourself - or that you are a failure or have let yourself or your family down: not at all 7. Trouble concentrating on things, such as reading the newspaper or watching television: not at all 8. Moving or speaking so slowly that other people could have noticed. Or the opposite - being so fidgety or restless that you have been moving around a lot more than usual: not at all 9. Thoughts that you would be better off or of hurting yourself in some way: not at all Total score: 0 Depression Screening Interpretation: Negative Depression Screening Done: Yes 13814 - PHQ-9 Billing: Yes Source: Developed by Drs. Torsten Gill, Jill Powell, Joesph Francisco and colleagues, with an educational lenny from [employer]. Thrive Questionnaire Date Thrive assessed: 05/19/23 I am a: Patient What is your living situation today?: I have a steady place to live Within the past 12 months, did the food you bought not last and you didn't have the money to get more?: Never true Within the past 12 months, did you worry whether your food would run out before you got money to buy more?: Never true Do you have trouble paying for medicines?: No Do you have trouble getting transportation to medical appointments?: No Do you have trouble paying your heating and electricity bill?: No Do you have trouble taking care of your child, family member or friend?: No Do you have trouble with day-to-day activities such as bathing, preparing meals, shopping, managing finances, etc.?: No Are you currently unemployed and looking for a job?: No Are you interested in more education?: No Please select the resources that you would like help with: None Currently or been in a relationship where the following occur: no concerns reported THRIVE Score: 0 AUDIT C Alcohol Use Questionnaire (AUDIT-C) 1. How often do you have a drink containing alcohol?: Never 3. How often do you have six or more drinks on one occasion?: Never Total Score: 0 Score Reviewed/Action Taken: Yes JULISSA-7 AMB Questionnaire JULISSA-7 Date JULISSA - 7 assessed: 05/19/23 Feeling nervous, anxious, or on edge: 0 = Not at all Not being able to stop or control worryin = Not at all Worrying too much about different things: 0 = Not at all Trouble relaxin = Not at all Being so restless that it is hard to sit still: 0 = Not at all Becoming easily annoyed or irritable: 0 = Not at all Feeling afraid as if something awful might happen: 0 = Not at all Total JULISSA-7 score (0-4 normal; 5-9 mild; 10-14 moderate; 15-21 severe): 0 Source: Developed by Drs. Torsten Gill, Jill Powell, Joesph Francisco and colleagues, with an educational lenny from [employer]. Review of Systems Const Denies chills, Reports difficulty sleeping (at times - works nights), Denies fatigue, Denies fever(s) and Denies headache(s) ENT Denies dysphagia, Denies dizziness, Denies otalgia, Denies headache(s), Denies neck pain, Denies odynophagia and Denies sore throat Card Denies chest pain, Denies palpitations and Denies dyspnea Resp Denies cough and Denies dyspnea GI Denies abdominal pain, Denies constipation, Denies dysphagia, Denies heartburn, Denies diarrhea, Denies nausea, Denies odynophagia and Denies vomiting Denies dysuria, Denies nocturia and Denies urinary frequency Musc Reports back pain (on and off, over the lower back; mild), Denies arthralgias and Denies neck pain Skin/Breast Details: (+) nodular lesion on the dorsal aspect of the left wrist Denies rash Neuro Denies dizziness and Denies headache(s) Endo Denies fatigue and Denies palpitations Physical exam (Primary Care) Vital Signs: Last Vital Signs Pulse 69 05/19/23 15:22 BP 142/94 H 05/19/23 15:22 Pulse Ox 97 05/19/23 15:22 Oxygen Delivery Method Room Air 05/19/23 15:22 BMI result Body Mass Index 30.0 Tobacco/Smoking Status: Tobacco use Status Tobacco use date assessed 05/19/23 05/19/23 15:26 Patient Tobacco Use Status Never used Tobacco 05/19/23 15:26 e-Cigarette/Vaping Use Never Used 05/19/23 15:26 PHQ-9: PHQ-9 Score PHQ-9: Total score 0 05/19/23 15:26 Depression Screening Interpretation: Negative Thrive Assessment: Date of Thrive Assessment Date Thrive assessed 05/19/23 05/19/23 15:26 Currently or been in a relationship where the following occur: no concerns reported Const General: no acute distress and alert HENMT Ears: TM's normal bilaterally and EAC's normal Throat: Yes posterior oropharynx normal and Yes tonsils normal (no TP congestion) Neck Neck: Yes no lymphadenopathy and Yes supple Resp Auscultation: clear to auscultation bilaterally, no rales and no wheezes Cardio Rate: regular rate Rhythm: regular rhythm Heart sounds: no murmurs GI Palpation (GI): Soft to palpation and nontender Auscultation: normal bowel sounds Back/Spine/Pelvis Thoracic/Lumbar Spine: lumbar spinal tenderness (mild) Skin Other: (+) soft, non-tender, nodular lesion on the dorsal aspect of the left wrist Extrem General: Yes no clubbing, cyanosis or edema Results Reviewed Results Reviewed: Laboratory Tests 03/27/23 03/27/23 03/27/23 08:04 08:08 08:08 WBC 5.4 Hgb 16.7 Hct 49.4 Plt Count 277 Sodium 144 Potassium 4.3 Creatinine 0.84 Estimated GFR > 60 Fasting Glucose 89 Hemoglobin A1c % 5.9 Uric Acid 8.4 H Calcium 9.9 AST 33 ALT 29 Triglycerides 96 Cholesterol 142 LDL Cholesterol, Calc 74 HDL Cholesterol 49 25-OH Vitamin D Total 40.1 TSH 0.60 Ur Specific [place] 1.015 Urine Protein Negative Urine Glucose (UA) Negative Urine Ketones Negative Urine Blood Negative Urine Nitrite Negative Ur Leukocyte Esterase Negative Assessment and Plan Assessment & Plan (1) Hypertriglyceridemia: Code(s): E78.1 - Pure hyperglyceridemia Plan: Results of his labs done last month reviewed and discussed with patient - his cholesterol numbers have all improved significantly from previous Reinforced low cholesterol diet Continue Gemfibrozil 600 mg Q HS Will recheck his labs and fasting lipids in 4 months for follow up (2) Elevated blood pressure reading: Code(s): R03.0 - Elevated blood-pressure reading, without diagnosis of hypertension Plan: Reinforced low sodium diet; goal is systolic BP of 120 mm or less His BP was initially high today and repeat BP is even higher at 160/100 mm - patient states that he works 3rd shift and had a meeting earlier today so he hardly had any sleep since yesterday and that this may be contributing to his high BP right now Patient is reminded to continue monitoring his blood pressure regularly Will also have our nurse navigator reach out to him and help him recheck his blood pressure in a few weeks (3) Impaired fasting glucose: Code(s): R73.01 - Impaired fasting glucose Plan: HgbA1c was at 5.9% on his labs done last month (was at 6.4% when last checked a few months previous to that) Reinforced low calorie diet/exercise as tolerated Will recheck his FBS and HgbA1c in 4 months for follow up (4) Articular gout: Code(s): M10.9 - Gout, unspecified Plan: Cautioned that his serum uric acid level is still higher than normal at 8.4 on his labs done last month; was at 8.9 previously Reinforced low purine diet Advised that the nodular lesion on his left wrist does not appear to be due to gout and may actually be a sebaceous or dermoid cyst Have considered starting him on urate-lowering Rx previously if his numbers do not improve or if patient starts experiencing frequent flare ups of gout He was started on Mitigare at his last visit and states that he took it for a month before self-discontinuing his med Will recheck his serum uric acid level in 4 months for follow up (5) Left-sided low back pain with sciatica: Code(s): M54.42 - Lumbago with sciatica, left side Qualifiers: Chronicity: unspecified Sciatica laterality: sciatica of left side Qualified Code(s): M54.42 - Lumbago with sciatica, left side Plan: Lumbar spine x-rays done last year revealed (+) minimal degenerative disc disease at L5-S1; SI joint x-rays were normal Went to physical therapy for a while, with (+) improvement of his symptoms States that his lower back has not been bothering him lately Will follow up with physical therapy as scheduled or as needed (goes to [facility] in [place] for his physical therapy - closer to home) States that he previously bought a massager and has been using it on his lower back lately; states that is seems to be helping a lot (6) Overweight (BMI 25.0-29.9): Code(s): E66.3 - Overweight Plan: Reinforced diet/exercise as tolerated/lose weight Plan Follow up in 4 months Orders: Orders Lipid Panel 4 Months E78.00 - Pure hypercholesterolemia, unspecified Complete Blood Count Auto Diff 4 Months D64.9 - Anemia, unspecified UA CC w/rflx Micro + Cult 4 Months R30.0 - Dysuria Hemoglobin A1c 4 Months R73.01 - Impaired fasting glucose Comprehensive [place]. Panel Fast 4 Months E78.00 - Pure hypercholesterolemia, unspecified Uric Acid 4 Months M10.9 - Gout, unspecified Vitamin D 25-OH Total 4 Months E55.9 - Vitamin D deficiency, unspecified Coding Level of Care Code Est Pt Level 4 (51202) Diagnoses Hypertriglyceridemia E78.1 Elevated blood pressure reading R03.0 Impaired fasting glucose R73.01 Articular gout M10.9 Left-sided low back pain with left-sided sciatica, unspecified chronicity M54.42 Chronicity: unspecified Sciatica laterality: sciatica of left side Overweight (BMI 25.0-29.9) E66.3
== END 2023-05-19 16:16 | disposition home or self-care (01) ==
PROVIDERS: PCP Internal Medicine; Visit Provider Internal Medicine
DX: E78.1 Pure hyperglyceridemia (principal); R03.0 Elevated blood-pressure reading, without diagnosis of hypertension; R73.01 Impaired fasting glucose; M10.9 Gout, unspecified; M54.42 Lumbago with sciatica, left side; E66.3 Overweight
CPT/HCPCS: 99214

== ENCOUNTER 2023-09-12 07:34 | Outpatient (REF) | payer OTHER, SELFPAY ==
[2023-09-12 07:55] LABS: MANUAL DIFF FLAG NO
[2023-09-12 08:41] LABS: Appearance Urine Clear; Color Urine Yellow; Glucose Urine UA Negative (Negative); Leukocyte Esterase Urine Negative (Negative); Nitrite Urine Negative (Negative); Specific Gravity - Urine 1.015 (1.005-1.025); Urine Blood Negative (Negative); Urine Ketones Negative (Negative); Urine Protein Negative (Neg-Trace)
[2023-09-12 08:43] LABS: Basophils Absolute Auto 0.1 X10*3/uL (0.0-0.2); Basophils Percent Auto 1.1 % (0-2); Eosinophils Absolute Auto 0.4 X10*3/uL (0.0-0.4); Eosinophils Percent Auto 6.7 % (0-4); Hematocrit 47.2 % (42.0-52.0); Imm Gran Abs Auto 0.03 X10*3/uL (0.00-0.03); Imm Gran Pct Auto 0.6 % (0.0-0.4); Lymphocytes Absolute Auto 2.6 X10*3/uL (1.2-4.9); Lymphocytes Percent Auto 48.6 % (20-40); Mean Corpuscular HGB Conc 33.9 g/dl (31.0-36.0); Mean Corpuscular Hemoglobin 28.8 pg (27.0-33.0); Mean Platelet Volume 10.9 fL (9.4-12.4); Monocytes Absolute Auto 0.3 X10*3/uL (0.1-1.2); Monocytes Percent Auto 6.2 % (2-11); Neutrophils Percent Auto 36.8 % (45-73); Platelet Count 269 X10*3/uL (160-400); Red Blood Count 5.55 X10*6/uL (4.60-5.80); Red Cell Distribution Width 12.5 % (11.0-16.0); White Blood Count 5.4 X10*3/uL (4.8-10.8)
[2023-09-12 09:14] LABS: Estimated Average Glucose 128 mg/dL; Hemoglobin A1c % 6.1 % (<6.0)
[2023-09-12 09:23] LABS: Alanine Aminotransferase 27 U/L (0-40); Albumin Level 4.6 g/dL (3.5-5.0); Alkaline Phosphatase 86 U/L (39-117); Anion Gap 14 (12-20); Aspartate Amino Transferase 29 U/L (5-37); Bilirubin Total 0.7 mg/dL (0.0-1.0); Blood Urea Nitrogen 13 mg/dL (9-16); Calcium 9.5 mg/dL (8.4-10.2); Carbon Dioxide 28 mmol/L (22-29); Chloride 104 mmol/L (96-108); Cholesterol 173 mg/dL (<200); Estimated Glomerular Filt Rate > 60; Glucose Fasting 111 mg/dL (60-99); HDL Cholesterol 51 mg/dL (>40); LDL Cholesterol Calculated 104 mg/dL (<100); Potassium 3.8 mmol/L (3.3-5.1); Sodium 142 mmol/L (135-145); Total Protein 7.6 g/dL (6.5-8.0); Triglycerides 94 mg/dL (<150); Uric Acid 8.9 mg/dL (3.4-7.0)
[2023-09-12 09:41] LABS: Vitamin D 25-OH Total 32.7 ng/mL (>30)
== END 2023-09-12 07:35 | disposition home or self-care (01) ==
LOC: HO.LAB 07:34
PROVIDERS: PCP Internal Medicine; Visit Provider Internal Medicine
DX: R30.0 Dysuria (principal); E78.00 Pure hypercholesterolemia, unspecified; D64.9 Anemia, unspecified; R73.01 Impaired fasting glucose; M10.9 Gout, unspecified; E55.9 Vitamin D deficiency, unspecified
CPT/HCPCS: 36415; 80053; 80061; 81003; 82306; 83036; 84550; 85025

== ENCOUNTER 2023-09-18 09:28 | Outpatient (AMB) | payer OTHER, SELFPAY ==
[2023-09-18 09:30] VITALS: BP 152/100; PULSE 65; O2SAT 99; BMI 29.0
--- NOTE | 2023-09-18 09:30 | A.OFFPC_ITS ---
Vital Signs 09/18/23 09:30 09/18/23 10:20 Height 5 ft 5 in Weight 174 lb BMI 29.0 BP 152/100 H 170/100 H Blood Pressure Location Lt brachial Lt brachial Position Sitting Sitting Pulse 65 Pulse Source Pulse Oximeter Pulse Oximetry (%) 99 Oxygen Delivery Method Room Air Intake Visit Reasons: hyperlipidemia, elevated BP, gout, IFG Collections Curator Required: No Instrument Person: Not Required per policy Accompanied by: Self / Same As Patient Allergies No Known Allergies Allergy (Verified 09/18/23 10:14) Medication List - Last Reconciled 09/18/23 by Jarad Jones MD gemfibrozil 600 mg PO BEDTIME 90 days Tobacco use date assessed: 05/19/23 Dental Screening Dental Screen Date: 05/19/23 HPI hyperlipidemia, elevated BP, gout, IFG HPI Details Patient comes in today for his follow up visit States that he had a gout flare up on his right big toe a couple of weeks ago - this has since cleared up with no recurrence States that he feels okay otherwise He denies any headaches or dizziness Denies any chest pains, no SOB No nausea/vomiting, no abdominal pain No change in bowel habits noted Needs his Gemfibrozil Rx refilled Had his follow up labs done last week - to discuss his results [facility] Medical History (Updated 09/18/23 @ 10:26 by Jarad Jones MD) Essential hypertension Impaired fasting glucose Tubular adenoma Overweight (BMI 25.0-29.9) Left-sided low back pain with sciatica Hypertriglyceridemia Articular gout Surgical History H/O colonoscopy Family History Mother No problems noted. Father No problems noted. 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 Torsten Gill, Jill Powell, Joesph Francisco and colleagues, with an educational lenny from [employer]. Review of Systems Const Denies chills, Reports difficulty sleeping (at times - works nights), Denies fatigue, Denies fever(s) and Denies headache(s) ENT Denies dysphagia, Denies dizziness, Denies otalgia, Denies headache(s), Denies neck pain, Denies odynophagia and Denies sore throat Card Denies chest pain, Denies palpitations and Denies dyspnea Resp Denies cough and Denies dyspnea GI Denies abdominal pain, Denies constipation, Denies dysphagia, Denies heartburn, Denies diarrhea, Denies nausea, Denies odynophagia and Denies vomiting Denies dysuria, Denies nocturia and Denies urinary frequency Musc Reports back pain (on and off, over the lower back; mild), Denies arthralgias and Denies neck pain Skin/Breast Denies rash Neuro Denies dizziness and Denies headache(s) Endo Denies fatigue and Denies palpitations Physical exam (Primary Care) Vital Signs: Last Vital Signs Pulse 65 09/18/23 09:30 BP 152/100 H 09/18/23 09:30 Pulse Ox 99 09/18/23 09:30 Oxygen Delivery Method Room Air 09/18/23 09:30 BMI result Body Mass Index 29.0 Tobacco/Smoking Status: Tobacco use Status Tobacco use date assessed 05/19/23 09/18/23 09:31 Patient Tobacco Use Status Never used Tobacco 09/18/23 09:31 e-Cigarette/Vaping Use Never Used 09/18/23 09:31 Thrive Assessment: Date of Thrive Assessment Date Thrive assessed 05/19/23 09/18/23 09:31 Const General: no acute distress and alert HENMT Ears: TM's normal bilaterally and EAC's normal Throat: Yes posterior oropharynx normal and Yes tonsils normal (no TP congestion) Neck Neck: Yes no lymphadenopathy and Yes supple Thyroid: Thyroid normal Resp Auscultation: clear to auscultation bilaterally, no rales and no wheezes Cardio Rate: regular rate Rhythm: regular rhythm Heart sounds: no murmurs GI Palpation (GI): Soft to palpation and nontender Auscultation: normal bowel sounds General: Yes no CVA tenderness Back/Spine/Pelvis Back: no CVA tenderness Thoracic/Lumbar Spine: lumbar spinal tenderness (mild) Skin Rashes: no rashes Extrem General: Yes no clubbing, cyanosis or edema Results Reviewed Results Reviewed: Laboratory Tests 09/12/23 09/12/23 07:51 07:54 WBC 5.4 Hgb 16.0 Hct 47.2 Plt Count 269 Sodium 142 Potassium 3.8 Creatinine 0.82 Estimated GFR > 60 Fasting Glucose 111 H Hemoglobin A1c % 6.1 H Uric Acid 8.9 H Calcium 9.5 AST 29 ALT 27 Triglycerides 94 Cholesterol 173 LDL Cholesterol, Calc 104 H HDL Cholesterol 51 25-OH Vitamin D Total 32.7 Ur Specific [place] 1.015 Urine Protein Negative Urine Glucose (UA) Negative Urine Blood Negative Urine Nitrite Negative Ur Leukocyte Esterase Negative Assessment and Plan Assessment & Plan (1) Hypertriglyceridemia: Code(s): E78.1 - Pure hyperglyceridemia Plan: Results of his labs done last week reviewed and discussed with patient - he is cautioned that his total and LDL cholesterol levels have increased slightly from previous Reinforced low cholesterol diet Continue Gemfibrozil 600 mg Q HS for now Will recheck his labs and fasting lipids in 4 months for follow up (2) Essential hypertension: Code(s): I10 - Essential (primary) hypertension Plan: His blood pressure today remains very high on repeat testing and patient is now advised to start taking Rx to help control his BP better - patient now agrees to this He relates (+) sensation of heaviness/pressure over the back of his head and neck often lately, consistent with his persistent high BP Reinforced low sodium diet; goal is systolic BP of 120 mm or less Will start him on Losartan 50 mg QD Patient is reminded to continue monitoring his blood pressure regularly (3) Impaired fasting glucose: Code(s): R73.01 - Impaired fasting glucose Plan: His HgbA1c was at 6.1% on his labs done last week (was previously at 5.9% a few months ago) Reinforced low calorie diet/exercise as tolerated Will recheck his FBS and HgbA1c in 4 months for follow up (4) Articular gout: Code(s): M10.9 - Gout, unspecified Plan: Cautioned that his serum uric acid level is still higher than normal at 8.9 on his labs done last week; was at 8.4 previously Reinforced low purine diet Have again discussed starting him on urate-lowering Rx previously if his numbers do not improve or if patient starts experiencing frequent flare ups of gout He was started on Mitigare at a previous visit and states that he took it for a month before self-discontinuing his med Will recheck his serum uric acid level in 4 months for follow up (5) Left-sided low back pain with sciatica: Code(s): M54.42 - Lumbago with sciatica, left side Qualifiers: Chronicity: unspecified Sciatica laterality: sciatica of left side Qualified Code(s): M54.42 - Lumbago with sciatica, left side Plan: Lumbar spine x-rays done last year revealed (+) minimal degenerative disc disease at L5-S1; SI joint x-rays were normal He went to physical therapy for a while, with (+) improvement of his symptoms States that his lower back has not been bothering him too much lately Will follow up with physical therapy as scheduled or as needed (goes to [facility] in [place] for his physical therapy - closer to home) States that he previously bought a massager and has been using it on his lower back lately which seems to be helping a lot (6) Overweight (BMI 25.0-29.9): Code(s): E66.3 - Overweight Plan: Reinforced diet/exercise as tolerated/lose weight Plan Follow up in 4 months Orders: Orders Uric Acid 4 Months M10.9 - Gout, unspecified Vitamin D 25-OH Total 4 Months E55.9 - Vitamin D deficiency, unspecified Hemoglobin A1c 4 Months R73.01 - Impaired fasting glucose Lipid Panel 4 Months E78.00 - Pure hypercholesterolemia, unspecified Complete Blood Count Auto Diff 4 Months D64.9 - Anemia, unspecified Comprehensive [place]. Panel Fast 4 Months E78.00 - Pure hypercholesterolemia, unspecified UA CC w/rflx Micro + Cult 4 Months R30.0 - Dysuria TSH reflex Free T4 4 Months E78.00 - Pure hypercholesterolemia, unspecified Medications: New losartan 50 mg PO DAILY 90 days 90 tabs 1RF Refilled gemfibrozil 600 mg PO BEDTIME 90 days 90 tabs 3RF Coding Level of Care Code Est Pt Level 4 (07545) Complex EM visit Add On G2211 Diagnoses Hypertriglyceridemia E78.1 Essential hypertension I10 Impaired fasting glucose R73.01 Articular gout M10.9 Left-sided low back pain with left-sided sciatica, unspecified chronicity M54.42 Chronicity: unspecified Sciatica laterality: sciatica of left side Overweight (BMI 25.0-29.9) E66.3
[2023-09-18 10:20] VITALS: BP 170/100
== END 2023-09-18 10:26 | disposition home or self-care (01) ==
PROVIDERS: PCP Internal Medicine; Visit Provider Internal Medicine
DX: E78.1 Pure hyperglyceridemia (principal); I10 Essential (primary) hypertension; R73.01 Impaired fasting glucose; M10.9 Gout, unspecified; M54.42 Lumbago with sciatica, left side; E66.3 Overweight
CPT/HCPCS: 99214; G2211

== ENCOUNTER 2024-01-12 07:17 | Outpatient (REF) | payer OTHER, SELFPAY ==
[2024-01-12 07:28] LABS: MANUAL DIFF FLAG NO
[2024-01-12 07:45] LABS: Basophils Absolute Auto 0.1 X10*3/uL (0.0-0.2); Basophils Percent Auto 0.9 % (0-2); Eosinophils Absolute Auto 0.2 X10*3/uL (0.0-0.4); Eosinophils Percent Auto 3.6 % (0-4); Hematocrit 44.4 % (42.0-52.0); Hemoglobin 15.3 g/dl (14.0-18.0); Imm Gran Abs Auto 0.02 X10*3/uL (0.00-0.03); Imm Gran Pct Auto 0.3 % (0.0-0.4); Lymphocytes Absolute Auto 2.3 X10*3/uL (1.2-4.9); Lymphocytes Percent Auto 34.6 % (20-40); Mean Corpuscular HGB Conc 34.5 g/dl (31.0-36.0); Mean Corpuscular Hemoglobin 28.7 pg (27.0-33.0); Mean Corpuscular Volume 83.3 fL (80.0-98.0); Mean Platelet Volume 10.2 fL (9.4-12.4); Monocytes Absolute Auto 0.4 X10*3/uL (0.1-1.2); Monocytes Percent Auto 5.4 % (2-11); Neutrophils Absolute Auto 3.7 x10*3/uL (2.0-8.3); Neutrophils Percent Auto 55.2 % (45-73); Platelet Count 272 X10*3/uL (160-400); Red Blood Count 5.33 X10*6/uL (4.60-5.80); Red Cell Distribution Width 12.2 % (11.0-16.0); White Blood Count 6.7 X10*3/uL (4.8-10.8)
[2024-01-12 07:53] LABS: Appearance Urine Clear; Color Urine Yellow; Glucose Urine UA Negative (Negative); Leukocyte Esterase Urine Trace (Negative); Nitrite Urine Negative (Negative); Specific Gravity - Urine 1.015 (1.005-1.025); UMIC TRIGGER UACC YES; Urine Blood Negative (Negative); Urine Ketones Negative (Negative); Urine Protein Negative (Neg-Trace)
[2024-01-12 07:56] LABS: Bacteria Urine None Seen (None Seen); Hyaline Casts Urine 0-2 /LPF (0-2); RBC Urine 0-2 /HPF (0-2); WBC Urine 0-5 /HPF (0-5)
[2024-01-12 08:05] LABS: Estimated Average Glucose 160 mg/dL; Hemoglobin A1c % 7.2 % (<6.0)
[2024-01-12 08:36] LABS: Alanine Aminotransferase 39 U/L (0-40); Albumin Level 4.9 g/dL (3.5-5.0); Alkaline Phosphatase 85 U/L (39-117); Anion Gap 13 (12-20); Aspartate Amino Transferase 33 U/L (5-37); Bilirubin Total 0.8 mg/dL (0.0-1.0); Blood Urea Nitrogen 11 mg/dL (9-16); Calcium 10.3 mg/dL (8.4-10.2); Carbon Dioxide 27 mmol/L (22-29); Chloride 108 mmol/L (96-108); Cholesterol 163 mg/dL (<200); Estimated Glomerular Filt Rate > 60; Glucose Fasting 123 mg/dL (60-99); HDL Cholesterol 43 mg/dL (>40); LDL Cholesterol Calculated 95 mg/dL (<100); Potassium 4.2 mmol/L (3.3-5.1); Sodium 144 mmol/L (135-145); Triglycerides 129 mg/dL (<150)
[2024-01-12 08:52] LABS: TSH reflex Free T4 0.93 uIU/mL (0.32-4.0); Vitamin D 25-OH Total 40.1 ng/mL (>30)
== END 2024-01-12 07:18 | disposition home or self-care (01) ==
LOC: HO.LAB 07:17
PROVIDERS: PCP Internal Medicine; Visit Provider Internal Medicine
DX: R73.01 Impaired fasting glucose (principal); E55.9 Vitamin D deficiency, unspecified; D64.9 Anemia, unspecified; M10.9 Gout, unspecified; E78.00 Pure hypercholesterolemia, unspecified
CPT/HCPCS: 36415; 80053; 80061; 81001; 82306; 83036; 84443; 84550; 85025

== ENCOUNTER 2024-01-19 08:49 | Outpatient (AMB) | payer OTHER, SELFPAY ==
--- NOTE | 2024-01-19 08:50 | A.OFFPC_ITS ---
Vital Signs 01/19/24 08:51 Height 5 ft 5 in Weight 177 lb 6 oz BMI 29.5 BP 118/72 Blood Pressure Location Lt brachial Position Sitting Pulse 63 Pulse Source Pulse Oximeter Pulse Oximetry (%) 98 Oxygen Delivery Method Room Air Intake Visit Reasons: hyperlipidemia, HTN, gout Ceramic Chemist Required: No Accompanied by: Self / Same As Patient Allergies No Known Allergies Allergy (Verified 01/19/24 09:50) Medication List - Last Reconciled 01/19/24 by Jarad Jones MD gemfibrozil 600 mg PO BEDTIME 90 days losartan 50 mg PO DAILY 90 days Tobacco use date assessed: 01/19/24 Dental Screening Dental Screen Date: 01/19/24 Did you have a dental visit in the last 12 months?: Yes Did you have a dental problem in the last 6 months where you did not have access to dental care?: No Was dental information given to patient?: Patient has dentist HPI hyperlipidemia, HTN, gout HPI Details Patient comes in today for his follow up visit States that he feels okay He denies any headaches or dizziness Denies any chest pains, no SOB No nausea/vomiting, no abdominal pain No change in bowel habits noted He had his follow up labs done last week - to discuss his results States that he already got his flu shot and COVID booster at the [facility] sometime last week [facility] Medical History (Updated 01/19/24 @ 10:03 by Jarad Jones MD) Diabetes mellitus Essential hypertension Tubular adenoma Overweight (BMI 25.0-29.9) Left-sided low back pain with sciatica Hypertriglyceridemia Articular gout Surgical History H/O colonoscopy Family History Mother No problems noted. Father No problems noted. 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 1. Little interest or pleasure in doing things: not at all 2. Feeling down, depressed, or hopeless: not at all 3. Trouble falling or staying asleep, or sleeping too much: not at all 4. Feeling tired or having little energy: not at all 5. Poor appetite or overeating: not at all 6. Feeling bad about yourself - or that you are a failure or have let yourself or your family down: not at all 7. Trouble concentrating on things, such as reading the newspaper or watching television: not at all 8. Moving or speaking so slowly that other people could have noticed. Or the opposite - being so fidgety or restless that you have been moving around a lot more than usual: not at all 9. Thoughts that you would be better off or of hurting yourself in some way: not at all Total score: 0 Depression Screening Interpretation: Negative Depression Screening Done: Yes 52717 - PHQ-9 Billing: Yes Source: Developed by Drs. Torsten Gill, Jill Powell, Joesph Francisco and colleagues, with an educational lenny from [employer]. Thrive Questionnaire Date Thrive assessed: 01/19/24 I am a: Patient What is your living situation today?: I have a steady place to live Within the past 12 months, did the food you bought not last and you didn't have the money to get more?: Never true Within the past 12 months, did you worry whether your food would run out before you got money to buy more?: Never true Do you have trouble paying for medicines?: No Do you have trouble getting transportation to medical appointments?: No Do you have trouble paying your heating and electricity bill?: No Do you have trouble taking care of your child, family member or friend?: No Do you have trouble with day-to-day activities such as bathing, preparing meals, shopping, managing finances, etc.?: No Are you currently unemployed and looking for a job?: No Are you interested in more education?: No Please select the resources that you would like help with: None Currently or been in a relationship where the following occur: No concerns reported THRIVE Score: 0 AUDIT C Alcohol Use Questionnaire (AUDIT-C) 1. How often do you have a drink containing alcohol?: Never 2. How many drinks containing alcohol do you have on a typical day when you are drinking?: 1 or 2 3. How often do you have six or more drinks on one occasion?: Never Total Score: 0 Score Reviewed/Action Taken: Yes JULISSA-7 AMB Questionnaire JULISSA-7 Date JULISSA - 7 assessed: 01/19/24 Feeling nervous, anxious, or on edge: 0 = Not at all Not being able to stop or control worryin = Not at all Worrying too much about different things: 0 = Not at all Trouble relaxin = Not at all Being so restless that it is hard to sit still: 0 = Not at all Becoming easily annoyed or irritable: 0 = Not at all Feeling afraid as if something awful might happen: 0 = Not at all Total JULISSA-7 score (0-4 normal; 5-9 mild; 10-14 moderate; 15-21 severe): 0 Source: Developed by Drs. Torsten Gill, Jill Powell, Joesph Francisco and colleagues, with an educational lenny from [employer]. Review of Systems Const Denies chills, Reports difficulty sleeping (at times - works nights), Denies fatigue, Denies fever(s) and Denies headache(s) ENT Denies dysphagia, Denies dizziness, Denies otalgia, Denies headache(s), Denies neck pain, Denies odynophagia and Denies sore throat Card Denies chest pain, Denies palpitations and Denies dyspnea Resp Denies chest congestion, Denies cough and Denies dyspnea GI Denies abdominal pain, Denies constipation, Denies dysphagia, Denies heartburn, Denies diarrhea, Denies nausea, Denies odynophagia and Denies vomiting Denies dysuria, Denies nocturia and Denies urinary frequency Musc Reports back pain (on and off, over the lower back; mild), Denies arthralgias and Denies neck pain Skin/Breast Denies rash Neuro Denies dizziness and Denies headache(s) Endo Denies fatigue and Denies palpitations Physical exam (Primary Care) Vital Signs: Last Vital Signs Pulse 63 01/19/24 08:51 BP 118/72 01/19/24 08:51 Pulse Ox 98 01/19/24 08:51 Oxygen Delivery Method Room Air 01/19/24 08:51 BMI result Body Mass Index 29.5 Tobacco/Smoking Status: Tobacco use Status Tobacco use date assessed 01/19/24 01/19/24 08:55 Patient Tobacco Use Status Never used Tobacco 01/19/24 08:55 e-Cigarette/Vaping Use Never Used 01/19/24 08:55 PHQ-9: PHQ-9 Score PHQ-9: Total score 0 01/19/24 10:01 Depression Screening Interpretation: Negative Thrive Assessment: Date of Thrive Assessment Date Thrive assessed 01/19/24 01/19/24 08:55 Currently or been in a relationship where the following occur: No concerns reported Const General: no acute distress and alert HENMT Ears: TM's normal bilaterally and EAC's normal Throat: Yes posterior oropharynx normal and Yes tonsils normal (no TP congestion) Neck Neck: Yes no lymphadenopathy and Yes supple Thyroid: Thyroid normal Resp Auscultation: clear to auscultation bilaterally, no rales and no wheezes Cardio Rate: regular rate Rhythm: regular rhythm Heart sounds: no murmurs GI Palpation (GI): Soft to palpation and nontender Auscultation: normal bowel sounds General: Yes no CVA tenderness Back/Spine/Pelvis Back: no CVA tenderness Thoracic/Lumbar Spine: lumbar spinal tenderness (mild) Skin Rashes: no rashes Extrem General: Yes no clubbing, cyanosis or edema Office Procedures Flu Questionnaire Does the patient have a severe egg allergy?: No Immunizations Fluarix Triv [id number] (PF) 45 mcg (15 mcg x 3)/0.5 mL IM syringe Performing Provider: Jarad Jones MD [facility] Documented (not given) by: MALGORZATA Lira on 01/19/24 09:01 Reason Not Given: Received Previously Results Reviewed Results Reviewed: Laboratory Tests 01/12/24 01/12/24 07:26 Unknown WBC 6.7 Hgb 15.3 Hct 44.4 Plt Count 272 Sodium 144 Potassium 4.2 Creatinine 0.87 Estimated GFR > 60 Fasting Glucose 123 H Hemoglobin A1c % 7.2 H Uric Acid 7.0 Calcium 10.3 H D AST 33 ALT 39 Triglycerides 129 Cholesterol 163 LDL Cholesterol, Calc 95 HDL Cholesterol 43 25-OH Vitamin D Total 40.1 TSH 0.93 Ur Specific [place] 1.015 Urine Protein Negative Urine Glucose (UA) Negative Urine Blood Negative Urine Nitrite Negative Ur Leukocyte Esterase Trace H Coding Level of Care Code Est Pt Level 4 (62233) Complex EM visit Add On G2211 Diagnoses Type 2 diabetes mellitus without complication, without long-term current use of insulin E11.9 Diabetes mellitus complication status: without complication Diabetes mellitus intermediate designer insulin use: without halfway use Diabetes mellitus type: type 2 Essential hypertension I10 Hypertriglyceridemia E78.1 Articular gout M10.9 Left-sided low back pain with left-sided sciatica, unspecified chronicity M54.42 Chronicity: unspecified Sciatica laterality: sciatica of left side Overweight (BMI 25.0-29.9) E66.3 Assessment & Plan Assessment & Plan (1) Diabetes mellitus: Code(s): E11.9 - Type 2 diabetes mellitus without complications Category: Medical Qualifiers: Diabetes mellitus complication status: without complication Diabetes mellitus halfway insulin use: without halfway use Diabetes mellitus type: type 2 Qualified Code(s): E11.9 - Type 2 diabetes mellitus without complications Plan: This is NEWLY-DIAGNOSED Have advised patient that his HgbA1c on his recent labs has increased from his previous of 6.1% to now at 7.2% and he is now categorically a diabetic Reinforced diabetic diet - he admits to poor compliance with his diet over the summer as he went with his family to [place] then on a 2 weeks' vacation Will go ahead and start him on Metformin 500 mg BID Will recheck his FBS and HgbA1c in 4 months for follow up (2) Essential hypertension: Code(s): I10 - Essential (primary) hypertension Category: Medical Plan: Reinforced low sodium diet; goal is systolic BP of 120 mm or less Continue Losartan 50 mg QD - his BP is much better today on his Rx Patient is reminded to continue monitoring his blood pressure regularly (3) Hypertriglyceridemia: Code(s): E78.1 - Pure hyperglyceridemia Category: Medical Plan: Results of his labs done last week reviewed and discussed with patient Reinforced low cholesterol diet Continue Gemfibrozil 600 mg QD Will recheck his labs and fasting lipids in 4 months for follow up (4) Articular gout: Code(s): M10.9 - Gout, unspecified Category: Medical Plan: His serum uric acid level has improved to normal at 7.0 mg/dl from his previous level of 8.9 mg/dl on his labs done last week Reinforced low purine diet He was started on Mitigare at a previous visit and patient took it for a month before self-discontinuing his med Will recheck his serum uric acid level in 4 months for follow up (5) Left-sided low back pain with sciatica: Code(s): M54.42 - Lumbago with sciatica, left side Category: Medical Qualifiers: Chronicity: unspecified Sciatica laterality: sciatica of left side Qualified Code(s): M54.42 - Lumbago with sciatica, left side Plan: Lumbar spine x-rays done last year revealed (+) minimal degenerative disc disease at L5-S1; SI joint x-rays were normal He went to physical therapy for a while with (+) improvement of his symptoms States that his lower back has not been bothering him too much lately Will follow up with physical therapy as scheduled or as needed (goes to [facility] in [place] for his physical therapy - closer to home) States that he previously bought a massager and has been using it on his lower back lately which seems to be helping a lot (6) Overweight (BMI 25.0-29.9): Code(s): E66.3 - Overweight Category: Medical Plan: Reinforced diet/exercise as tolerated/lose weight Plan Follow up in 4 months Orders: Orders Complete Blood Count Auto Diff 4 Months D64.9 - Anemia, unspecified TSH reflex Free T4 4 Months E78.00 - Pure hypercholesterolemia, unspecified UA CC w/rflx Micro + Cult 4 Months R30.0 - Dysuria Uric Acid 4 Months M10.9 - Gout, unspecified Influenza [id number] Immunization Today Z23 - Encounter for immunization Comprehensive [place]. Panel Fast 4 Months E78.00 - Pure hypercholesterolemia, unspecified Lipid Panel 4 Months E78.00 - Pure hypercholesterolemia, unspecified Microalbumin, Random (w Creat) 4 Months E11.9 - Type 2 diabetes mellitus without complications Hemoglobin A1c 4 Months E11.9 - Type 2 diabetes mellitus without complications Vitamin D 25-OH Total 4 Months E55.9 - Vitamin D deficiency, unspecified Medications: New metformin 500 mg PO BID 60 tabs 3RF 30 days E11.9 - Type 2 diabetes mellitus without complications
[2024-01-19 08:51] VITALS: BP 118/72; PULSE 63; O2SAT 98; BMI 29.5
== END 2024-01-19 10:00 | disposition home or self-care (01) ==
PROVIDERS: PCP Internal Medicine; Visit Provider Internal Medicine
DX: E11.9 Type 2 diabetes mellitus without complications (principal); I10 Essential (primary) hypertension; E78.1 Pure hyperglyceridemia; M10.9 Gout, unspecified; M54.42 Lumbago with sciatica, left side; E66.3 Overweight; Z23 Encounter for immunization

== ENCOUNTER → 2024-01-19 08:49 | Outpatient (BNVA) | payer OTHER, SELFPAY | PROVIDERS: PCP Internal Medicine; Visit Provider Internal Medicine | DX: E11.9 Type 2 diabetes mellitus without complications (principal); I10 Essential (primary) hypertension; E78.1 Pure hyperglyceridemia; M10.9 Gout, unspecified; M54.42 Lumbago with sciatica, left side; E66.3 Overweight; Z68.29 Body mass index [BMI] 29.0-29.9, adult; Z79.899 Other long term (current) drug therapy | CPT/HCPCS: 90471; 96127 ==

== ENCOUNTER 2024-05-20 07:34 | Outpatient (REF) | payer OTHER, SELFPAY ==
[2024-05-20 07:46] LABS: MANUAL DIFF FLAG NO
[2024-05-20 08:17] LABS: Basophils Absolute Auto 0.1 X10*3/uL (0.0-0.2); Eosinophils Absolute Auto 0.2 X10*3/uL (0.0-0.4); Eosinophils Percent Auto 3.3 % (0-4); Hematocrit 46.1 % (42.0-52.0); Hemoglobin 15.6 g/dl (14.0-18.0); Imm Gran Abs Auto 0.01 X10*3/uL (0.00-0.03); Imm Gran Pct Auto 0.2 % (0.0-0.4); Lymphocytes Absolute Auto 2.4 X10*3/uL (1.2-4.9); Mean Corpuscular HGB Conc 33.8 g/dl (31.0-36.0); Mean Corpuscular Hemoglobin 28.3 pg (27.0-33.0); Mean Corpuscular Volume 83.7 fL (80.0-98.0); Mean Platelet Volume 10.7 fL (9.4-12.4); Monocytes Absolute Auto 0.3 X10*3/uL (0.1-1.2); Monocytes Percent Auto 5.4 % (2-11); Neutrophils Absolute Auto 3.2 x10*3/uL (2.0-8.3); Neutrophils Percent Auto 51.1 % (45-73); Platelet Count 292 X10*3/uL (160-400); Red Blood Count 5.51 X10*6/uL (4.60-5.80); Red Cell Distribution Width 12.4 % (11.0-16.0); White Blood Count 6.2 X10*3/uL (4.8-10.8)
[2024-05-20 08:24] LABS: Estimated Average Glucose 117 mg/dL; Hemoglobin A1C 158.6594 umol/L; Hemoglobin A1c % 5.7 % (<6.0)
[2024-05-20 08:26] LABS: Appearance Urine Clear; Color Urine Yellow; Glucose Urine UA Negative (Negative); Leukocyte Esterase Urine Negative (Negative); Nitrite Urine Negative (Negative); PH 5.5 (5.0-9.0); Specific Gravity - Urine 1.015 (1.005-1.025); Urine Blood Negative (Negative); Urine Ketones Negative (Negative); Urine Protein Negative (Neg-Trace)
[2024-05-20 08:50] LABS: Alanine Aminotransferase 32 U/L (0-40); Albumin Level 4.9 g/dL (3.5-5.0); Alkaline Phosphatase 88 U/L (39-117); Anion Gap 13 (12-20); Aspartate Amino Transferase 39 U/L (5-37); Bilirubin Total 0.7 mg/dL (0.0-1.0); Blood Urea Nitrogen 13 mg/dL (9-16); Calcium 10.3 mg/dL (8.4-10.2); Carbon Dioxide 28 mmol/L (22-29); Chloride 106 mmol/L (96-108); Cholesterol 145 mg/dL (<200); Estimated Glomerular Filt Rate > 60; Glucose Fasting 86 mg/dL (60-99); HDL Cholesterol 51 mg/dL (>40); LDL Cholesterol Calculated 83 mg/dL (<100); Potassium 4.4 mmol/L (3.3-5.1); Sodium 143 mmol/L (135-145); Triglycerides 59 mg/dL (<150)
[2024-05-20 09:02] LABS: Creatinine Urine 124.53 mg/dL; Microalbum/Creatinine Ratio Ur 5.6 ug/mg cr (<30)
== END 2024-05-20 07:35 | disposition home or self-care (01) ==
LOC: HO.LAB 07:34
PROVIDERS: PCP Internal Medicine; Visit Provider Internal Medicine
DX: E78.00 Pure hypercholesterolemia, unspecified (principal); M10.9 Gout, unspecified; E11.9 Type 2 diabetes mellitus without complications; R30.0 Dysuria; D64.9 Anemia, unspecified; E55.9 Vitamin D deficiency, unspecified
CPT/HCPCS: 36415; 80053; 80061; 81003; 82043; 82306; 82570; 83036; 84443; 84550; 85025

== ENCOUNTER 2024-05-23 10:16 | Outpatient (AMB) | payer OTHER, SELFPAY ==
--- NOTE | 2024-05-23 10:49 | MHC.PC.OV ---
Vital Signs 05/23/24 10:55 Height 5 ft 5 in Weight 174 lb 4 oz BMI 29.0 BP 120/72 Blood Pressure Location Lt brachial Position Sitting Pulse 58 Pulse Source Pulse Oximeter Temp 97.3 F Temp Source Skin Pulse Oximetry (%) 98 Oxygen Delivery Method Room Air Intake Visit Reasons: hyperlipidemia, HTN, DM (newly-diagnosed) Intake Note: Patient is here to follow up on HLD, HTN, DM. Board Writer Required: No Extension Agent: Not Required per policy Accompanied by: Self / Same As Patient Allergies No Known Allergies Allergy (Verified 05/23/24 11:29) Medication List - Last Reconciled 05/23/24 by Jarad Jones MD gemfibrozil 600 mg PO BEDTIME 90 days losartan 50 mg PO DAILY 90 days metformin 500 mg PO BID Tobacco use date assessed: 05/23/24 Dental Screening Dental Screen Date: 05/23/24 Did you have a dental visit in the last 12 months?: Yes Did you have a dental problem in the last 6 months where you did not have access to dental care?: No Was dental information given to patient?: Patient has dentist HPI hyperlipidemia, HTN, DM (newly-diagnosed) HPI Details Patient comes in today for his follow up visit States that he feels okay He denies any headaches or dizziness Denies any chest pains, no SOB No nausea/vomiting, no abdominal pain No change in bowel habits noted He had his follow up labs done a few days ago - to discuss his results [facility] Medical History Diabetes mellitus Essential hypertension Tubular adenoma Overweight (BMI 25.0-29.9) Left-sided low back pain with sciatica Hypertriglyceridemia Articular gout Surgical History H/O colonoscopy Family History Mother No problems noted. Father No problems noted. 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 1. Little interest or pleasure in doing things: not at all 2. Feeling down, depressed, or hopeless: not at all 3. Trouble falling or staying asleep, or sleeping too much: not at all 4. Feeling tired or having little energy: not at all 5. Poor appetite or overeating: not at all 6. Feeling bad about yourself - or that you are a failure or have let yourself or your family down: not at all 7. Trouble concentrating on things, such as reading the newspaper or watching television: not at all 8. Moving or speaking so slowly that other people could have noticed. Or the opposite - being so fidgety or restless that you have been moving around a lot more than usual: not at all 9. Thoughts that you would be better off or of hurting yourself in some way: not at all Total score: 0 Depression Screening Interpretation: Negative Depression Screening Done: Yes 10097 - PHQ-9 Billing: Yes Source: Developed by Drs. Torsten Gill, Jill Powell, Joesph Francisco and colleagues, with an educational lenny from [employer]. Thrive Questionnaire Date Thrive assessed: 05/23/24 I am a: Patient What is your living situation today?: I have a steady place to live Within the past 12 months, did the food you bought not last and you didn't have the money to get more?: Never true Within the past 12 months, did you worry whether your food would run out before you got money to buy more?: Never true Do you have trouble paying for medicines?: No Do you have trouble getting transportation to medical appointments?: No Do you have trouble paying your heating and electricity bill?: No Do you have trouble taking care of your child, family member or friend?: No Do you have trouble with day-to-day activities such as bathing, preparing meals, shopping, managing finances, etc.?: No Are you currently unemployed and looking for a job?: No Are you interested in more education?: No Please select the resources that you would like help with: None Currently or been in a relationship where the following occur: No concerns reported THRIVE Score: 0 AUDIT C Alcohol Use Questionnaire (AUDIT-C) 1. How often do you have a drink containing alcohol?: Monthly or less 2. How many drinks containing alcohol do you have on a typical day when you are drinking?: 1 or 2 3. How often do you have six or more drinks on one occasion?: Monthly Total Score: 3 Score Reviewed/Action Taken: Yes JULISSA-7 AMB Questionnaire JULISSA-7 Date JULISSA - 7 assessed: 05/23/24 Feeling nervous, anxious, or on edge: 0 = Not at all Not being able to stop or control worryin = Not at all Worrying too much about different things: 0 = Not at all Trouble relaxin = Not at all Being so restless that it is hard to sit still: 0 = Not at all Becoming easily annoyed or irritable: 0 = Not at all Feeling afraid as if something awful might happen: 0 = Not at all Total JULISSA-7 score (0-4 normal; 5-9 mild; 10-14 moderate; 15-21 severe): 0 Source: Developed by Drs. Torsten Gill, Jill Powell, Joesph Francisco and colleagues, with an educational lenny from [employer]. Review of Systems Const Denies chills, Reports difficulty sleeping (at times - works nights), Denies fatigue, Denies fever(s) and Denies headache(s) ENT Denies dysphagia, Denies dizziness, Denies otalgia, Denies headache(s), Denies neck pain, Denies odynophagia and Denies sore throat Card Denies chest pain, Denies palpitations and Denies dyspnea Resp Denies chest congestion, Denies cough and Denies dyspnea GI Denies abdominal pain, Denies constipation, Denies dysphagia, Denies heartburn, Denies diarrhea, Denies nausea, Denies odynophagia and Denies vomiting Denies dysuria, Denies nocturia and Denies urinary frequency Musc Reports back pain (on and off, over the lower back; mild), Denies arthralgias and Denies neck pain Skin/Breast Denies rash Neuro Denies dizziness and Denies headache(s) Endo Denies fatigue and Denies palpitations Physical exam (Primary Care) Vital Signs: Last Vital Signs Temp 97.3 F 05/23/24 10:55 Pulse 58 05/23/24 10:55 BP 120/72 05/23/24 10:55 Pulse Ox 98 05/23/24 10:55 Oxygen Delivery Method Room Air 05/23/24 10:55 BMI result Body Mass Index 29.0 Tobacco/Smoking Status: Tobacco use Status Tobacco use date assessed 05/23/24 05/23/24 11:11 Patient Tobacco Use Status Never used Tobacco 05/23/24 11:11 e-Cigarette/Vaping Use Never Used 05/23/24 11:11 PHQ-9: PHQ-9 Score PHQ-9: Total score 0 05/23/24 11:11 Depression Screening Interpretation: Negative Thrive Assessment: Date of Thrive Assessment Date Thrive assessed 05/23/24 05/23/24 11:11 Currently or been in a relationship where the following occur: No concerns reported Const General: no acute distress and alert HENMT Ears: TM's normal bilaterally and EAC's normal Throat: Yes posterior oropharynx normal and Yes tonsils normal (no TP congestion) Neck Neck: Yes no lymphadenopathy and Yes supple Thyroid: Thyroid normal Resp Auscultation: clear to auscultation bilaterally, no rales and no wheezes Cardio Rate: regular rate Rhythm: regular rhythm Heart sounds: no murmurs GI Palpation (GI): Soft to palpation and nontender Auscultation: normal bowel sounds General: Yes no CVA tenderness Back/Spine/Pelvis Back: no CVA tenderness Thoracic/Lumbar Spine: lumbar spinal tenderness (mild) Skin Rashes: no rashes Extrem General: Yes no clubbing, cyanosis or edema Results Reviewed Results Reviewed: Laboratory Tests 05/20/24 05/20/24 07:41 07:45 WBC 6.2 Hgb 15.6 Hct 46.1 Plt Count 292 Sodium 143 Potassium 4.4 Creatinine 0.78 Estimated GFR > 60 Fasting Glucose 86 Hemoglobin A1c % 5.7 Uric Acid 9.0 H Calcium 10.3 H AST 39 H ALT 32 Triglycerides 59 Cholesterol 145 LDL Cholesterol, Calc 83 HDL Cholesterol 51 25-OH Vitamin D Total 47.0 TSH 0.70 Ur Specific Mason 1.015 Urine Protein Negative Urine Glucose (UA) Negative Urine Blood Negative Urine Nitrite Negative Ur Leukocyte Esterase Negative Microalb/Creat Ratio 5.6 Coding Level of Care Code Est Pt Level 4 (56345) Diagnoses Type 2 diabetes mellitus without complication, without long-term current use of insulin E11.9 Diabetes mellitus type: type 2 Diabetes mellitus correction insulin use: without correction use Diabetes mellitus complication status: without complication Essential hypertension I10 Hypertriglyceridemia E78.1 Articular gout M10.9 Left-sided low back pain with left-sided sciatica, unspecified chronicity M54.42 Chronicity: unspecified Sciatica laterality: sciatica of left side Overweight (BMI 25.0-29.9) E66.3 Additional Codes PHQ-9 - 03956 - PHQ-9 Billing: Yes ([id number]) Assessment & Plan Assessment & Plan (1) Diabetes mellitus: Code(s): E11.9 - Type 2 diabetes mellitus without complications Category: Medical Qualifiers: Diabetes mellitus type: type 2 Diabetes mellitus correction insulin use: without long term care pharmacist use Diabetes mellitus complication status: without complication Qualified Code(s): E11.9 - Type 2 diabetes mellitus without complications Plan: Patient's HgbA1c appears to have improved significantly as his diabetes is now back under control at 5.7% on his labs done a few days ago - he was previously at 7.2% back in December 2023 and goal is at least <7.0% but ideally < 6.5% Reinforced diabetic diet Continue Metformin 500 mg BID Will recheck his FBS and HgbA1c in 4 months for follow up (2) Essential hypertension: Code(s): I10 - Essential (primary) hypertension Category: Medical Plan: Reinforced low sodium diet; goal is systolic BP of 120 mm or less Continue Losartan 50 mg QD Patient is reminded to continue monitoring his blood pressure regularly (3) Hypertriglyceridemia: Code(s): E78.1 - Pure hyperglyceridemia Category: Medical Plan: Results of his labs done a few days ago reviewed and discussed with patient Reinforced low cholesterol diet Continue Gemfibrozil 600 mg QD Will recheck his labs and fasting lipids in 4 months for follow up (4) Articular gout: Code(s): M10.9 - Gout, unspecified Category: Medical Plan: His serum uric acid level has increased again to 9.0 mg/dl on his recent labs - was previously at 7.0 mg/dl back in December 2023 Patient states that he's had no acute gout flare ups recently Reinforced low purine diet He was on Mitigare before but patient took it for about a month and then self-discontinued his medication Will recheck his serum uric acid level in 4 months for follow up (5) Left-sided low back pain with sciatica: Code(s): M54.42 - Lumbago with sciatica, left side Category: Medical Qualifiers: Chronicity: unspecified Sciatica laterality: sciatica of left side Qualified Code(s): M54.42 - Lumbago with sciatica, left side Plan: Lumbar spine x-rays done last year revealed (+) minimal degenerative disc disease at L5-S1; SI joint x-rays were normal He went to physical therapy for a while with (+) improvement of his symptoms States that his lower back has not been bothering him too much lately Will follow up with physical therapy as scheduled or as needed (goes to [facility] in [place] for his physical therapy - closer to home) States that he previously bought a massager and has been using it on his lower back lately which has been helping a lot (6) Overweight (BMI 25.0-29.9): Code(s): E66.3 - Overweight Category: Medical Plan: Reinforced diet/exercise as tolerated/lose weight Plan Follow up in 4 months Orders: Orders Hemoglobin A1c 4 Months E11.9 - Type 2 diabetes mellitus without complications Uric Acid 4 Months M10.9 - Gout, unspecified Complete Blood Count Auto Diff 4 Months D64.9 - Anemia, unspecified Lipid Panel 4 Months E78.00 - Pure hypercholesterolemia, unspecified Comprehensive [place]. Panel Fast 4 Months E78.00 - Pure hypercholesterolemia, unspecified Microalbumin, Random (w Creat) 4 Months E11.9 - Type 2 diabetes mellitus without complications TSH reflex Free T4 4 Months E78.00 - Pure hypercholesterolemia, unspecified UA CC w/rflx Micro + Cult 4 Months R30.0 - Dysuria Vitamin D 25-OH Total 4 Months E55.9 - Vitamin D deficiency, unspecified
[2024-05-23 10:55] VITALS: BP 120/72; PULSE 58; TEMP 36.3; O2SAT 98; BMI 29.0
== END 2024-05-23 11:36 | disposition home or self-care (01) ==
PROVIDERS: PCP Internal Medicine; Visit Provider Internal Medicine
DX: E11.9 Type 2 diabetes mellitus without complications (principal); I10 Essential (primary) hypertension; E78.1 Pure hyperglyceridemia; M10.9 Gout, unspecified; M54.42 Lumbago with sciatica, left side; E66.3 Overweight

== ENCOUNTER → 2024-05-23 10:16 | Outpatient (BNVA) | payer OTHER, SELFPAY | PROVIDERS: PCP Internal Medicine; Visit Provider Internal Medicine | DX: E11.9 Type 2 diabetes mellitus without complications (principal); I10 Essential (primary) hypertension; E78.1 Pure hyperglyceridemia; M10.9 Gout, unspecified; M54.42 Lumbago with sciatica, left side; E66.3 Overweight; Z68.29 Body mass index [BMI] 29.0-29.9, adult; Z79.84 Long term (current) use of oral hypoglycemic drugs; Z79.899 Other long term (current) drug therapy | CPT/HCPCS: 96127 ==

== ENCOUNTER 2024-10-24 07:35 | Outpatient (REF) | payer OTHER, SELFPAY ==
[2024-10-24 07:48] LABS: MANUAL DIFF FLAG NO
[2024-10-24 07:56] LABS: Hematocrit 45.0 % (42.0-52.0); Hemoglobin 15.7 g/dl (14.0-18.0); Imm Gran Abs Auto 0.01 X10*3/uL (0.00-0.03); Imm Gran Pct Auto 0.2 % (0.0-0.4); Lymphocytes Absolute Auto 2.2 X10*3/uL (1.2-4.9); Mean Corpuscular HGB Conc 34.9 g/dl (31.0-36.0); Mean Corpuscular Hemoglobin 29.0 pg (27.0-33.0); Mean Corpuscular Volume 83.0 fL (80.0-98.0); NRBC Abs Auto 0.000 X10*3/uL (0.0-0.012); NRBC Pct Auto 0.0 /100WBC (0.0-0.2); Platelet Count 277 X10*3/uL (160-400); Red Blood Count 5.42 X10*6/uL (4.60-5.80); White Blood Count 5.7 X10*3/uL (4.8-10.8)
[2024-10-24 08:11] LABS: Hemoglobin A1C 177.5126 umol/L; Total Hemoglobin (HGBA1C) 4118.7701 umol/L
[2024-10-24 08:51] LABS: Alanine Aminotransferase 31 U/L (0-40); Albumin Level 5.3 g/dL (3.5-5.0); Alkaline Phosphatase 88 U/L (39-117); Anion Gap 14 (12-20); Aspartate Amino Transferase 30 U/L (5-37); Blood Urea Nitrogen 12 mg/dL (9-16); Calcium 10.3 mg/dL (8.4-10.2); Carbon Dioxide 27 mmol/L (22-29); Chloride 107 mmol/L (96-108); Cholesterol 159 mg/dL (<200); Estimated Glomerular Filt Rate > 60; HDL Cholesterol 50 mg/dL (>40); Potassium 4.5 mmol/L (3.3-5.1); Sodium 143 mmol/L (135-145); Total Protein 7.9 g/dL (6.5-8.0); Triglycerides 85 mg/dL (<150)
[2024-10-24 09:06] LABS: Uric Acid 8.3 mg/dL (3.4-7.0)
[2024-10-24 09:26] LABS: Appearance Urine Clear; Glucose Urine UA Negative (Negative); PH 5.5 (5.0-9.0); Specific Gravity - Urine 1.010 (1.005-1.025); UMIC TRIGGER UACC YES
[2024-10-24 10:20] LABS: Microalbum/Creatinine Ratio Ur 7.3 ug/mg cr (<30)
== END 2024-10-24 07:36 | disposition home or self-care (01) ==
LOC: HO.LAB 07:35
PROVIDERS: PCP Internal Medicine; Visit Provider Internal Medicine
DX: E11.9 Type 2 diabetes mellitus without complications (principal); M10.9 Gout, unspecified; D64.9 Anemia, unspecified; E87.0 Hyperosmolality and hypernatremia; E78.00 Pure hypercholesterolemia, unspecified; E55.9 Vitamin D deficiency, unspecified; R30.0 Dysuria
CPT/HCPCS: 36415; 80053; 80061; 81001; 81003; 82043; 82306; 82570; 83036; 84443; 84550; 85025

== ENCOUNTER 2024-10-27 13:16 | Outpatient (AMB) | payer OTHER, SELFPAY ==
--- NOTE | 2024-10-27 13:28 | A.OFFPC_ITS ---
Vital Signs 10/27/24 13:29 Height 5 ft 5 in Weight 175 lb 2 oz BMI 29.1 BP 120/72 Blood Pressure Location Lt brachial Position Sitting Pulse 72 Pulse Source Pulse Oximeter Pulse Oximetry (%) 96 Oxygen Delivery Method Room Air Intake Visit Reasons: DM, Hyperlipidemia,HTN Skating Rink Manager Required: No Accompanied by: Self / Same As Patient Allergies No Known Allergies Allergy (Verified 10/27/24 13:57) Medication List - Last Reconciled 10/27/24 by Jarad Jones MD gemfibrozil 600 mg PO BEDTIME 90 days losartan 50 mg PO DAILY 90 days metformin 500 mg PO BID Tobacco use date assessed: 10/27/24 Dental Screening Dental Screen Date: 10/27/24 Did you have a dental visit in the last 12 months?: Yes Did you have a dental problem in the last 6 months where you did not have access to dental care?: No Was dental information given to patient?: Patient has dentist HPI DM, Hyperlipidemia,HTN HPI Details Patient comes in today for his follow up visit States that he feels well He denies any headaches or dizziness Denies any chest pains, no SOB No nausea/vomiting, no abdominal pain No change in bowel habits noted States that he needs all of his Rx refilled today He had his follow up labs done a few days ago - to discuss his results [facility] Medical History Diabetes mellitus Essential hypertension Tubular adenoma Overweight (BMI 25.0-29.9) Left-sided low back pain with sciatica Hypertriglyceridemia Articular gout Surgical History H/O colonoscopy Family History Mother No problems noted. Father No problems noted. 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 1. Little interest or pleasure in doing things: not at all 2. Feeling down, depressed, or hopeless: not at all 3. Trouble falling or staying asleep, or sleeping too much: not at all 4. Feeling tired or having little energy: not at all 5. Poor appetite or overeating: not at all 6. Feeling bad about yourself - or that you are a failure or have let yourself or your family down: not at all 7. Trouble concentrating on things, such as reading the newspaper or watching television: not at all 8. Moving or speaking so slowly that other people could have noticed. Or the opposite - being so fidgety or restless that you have been moving around a lot more than usual: not at all 9. Thoughts that you would be better off or of hurting yourself in some way: not at all Total score: 0 Depression Screening Interpretation: Negative Depression Screening Done: Yes 51980 - PHQ-9 Billing: Yes Source: Developed by Drs. Torsten Gill, Jill Powell, Joesph Francisco and colleagues, with an educational lenny from [employer]. Thrive Questionnaire Date Thrive assessed: 10/27/24 I am a: Patient What is your living situation today?: I choose not to answer this question Within the past 12 months, did the food you bought not last and you didn't have the money to get more?: I choose not to answer this question Within the past 12 months, did you worry whether your food would run out before you got money to buy more?: I choose not to answer this question Do you have trouble paying for medicines?: I choose not to answer this question Do you have trouble getting transportation to medical appointments?: I choose not to answer this question Do you have trouble paying your heating and electricity bill?: I choose not to answer this question Do you have trouble taking care of your child, family member or friend?: I choose not to answer this question Do you have trouble with day-to-day activities such as bathing, preparing meals, shopping, managing finances, etc.?: I choose not to answer this question Are you currently unemployed and looking for a job?: I choose not to answer this question Are you interested in more education?: I choose not to answer this question Please select the resources that you would like help with: None Currently or been in a relationship where the following occur: I choose not to answer THRIVE Score: 0 AUDIT C Alcohol Use Questionnaire (AUDIT-C) 1. How often do you have a drink containing alcohol?: Monthly or less 2. How many drinks containing alcohol do you have on a typical day when you are drinking?: 1 or 2 3. How often do you have six or more drinks on one occasion?: Monthly Total Score: 3 Score Reviewed/Action Taken: Yes JULISSA-7 AMB Questionnaire JULISSA-7 Date JULISSA - 7 assessed: 10/27/24 Feeling nervous, anxious, or on edge: 0 = Not at all Not being able to stop or control worryin = Not at all Worrying too much about different things: 0 = Not at all Trouble relaxin = Not at all Being so restless that it is hard to sit still: 0 = Not at all Becoming easily annoyed or irritable: 0 = Not at all Feeling afraid as if something awful might happen: 0 = Not at all Total JULISSA-7 score (0-4 normal; 5-9 mild; 10-14 moderate; 15-21 severe): 0 Source: Developed by Drs. Torsten Gill, Jill Powell, Joesph Francisco and colleagues, with an educational lenny from [employer]. Review of Systems Const Denies chills, Reports difficulty sleeping (at times - works nights), Denies fatigue, Denies fever(s) and Denies headache(s) ENT Denies dysphagia, Denies dizziness, Denies otalgia, Denies headache(s), Denies neck pain, Denies odynophagia and Denies sore throat Card Denies chest pain, Denies palpitations and Denies dyspnea Resp Denies chest congestion, Denies cough and Denies dyspnea GI Denies abdominal pain, Denies constipation, Denies dysphagia, Denies heartburn, Denies diarrhea, Denies nausea, Denies odynophagia and Denies vomiting Denies dysuria, Denies nocturia and Denies urinary frequency Musc Reports back pain (on and off, over the lower back; mild), Denies arthralgias and Denies neck pain Skin/Breast Denies rash Neuro Denies dizziness and Denies headache(s) Endo Denies fatigue and Denies palpitations Physical exam (Primary Care) Vital Signs: Last Vital Signs Pulse 72 10/27/24 13:29 BP 120/72 10/27/24 13:29 Pulse Ox 96 10/27/24 13:29 Oxygen Delivery Method Room Air 10/27/24 13:29 BMI result Body Mass Index 29.1 Tobacco/Smoking Status: Tobacco use Status Tobacco use date assessed 10/27/24 10/27/24 13:37 Patient Tobacco Use Status Never used Tobacco 10/27/24 13:37 e-Cigarette/Vaping Use Never Used 10/27/24 13:37 PHQ-9: PHQ-9 Score PHQ-9: Total score 0 10/27/24 13:37 Depression Screening Interpretation: Negative Thrive Assessment: Date of Thrive Assessment Date Thrive assessed 10/27/24 10/27/24 13:37 Currently or been in a relationship where the following occur: I choose not to answer Const General: no acute distress and alert HENMT Ears: TM's normal bilaterally and EAC's normal Throat: Yes posterior oropharynx normal and Yes tonsils normal (no TP congestion) Neck Neck: Yes no lymphadenopathy and Yes supple Thyroid: Thyroid normal Resp Auscultation: clear to auscultation bilaterally, no rales and no wheezes Cardio Rate: regular rate Rhythm: regular rhythm Heart sounds: no murmurs GI Palpation (GI): Soft to palpation and nontender Auscultation: normal bowel sounds General: Yes no CVA tenderness Back/Spine/Pelvis Back: no CVA tenderness Thoracic/Lumbar Spine: lumbar spinal tenderness (mild) Skin Rashes: no rashes Extrem General: Yes no clubbing, cyanosis or edema Results Reviewed Results Reviewed: Laboratory Tests 10/24/24 10/24/24 07:45 07:46 WBC 5.7 Hgb 15.7 Hct 45.0 Plt Count 277 Sodium 143 Potassium 4.5 Creatinine 0.76 Estimated GFR > 60 Fasting Glucose 105 H Hemoglobin A1c % 6.1 H Uric Acid 8.3 H Calcium 10.3 H AST 30 ALT 31 Triglycerides 85 Cholesterol 159 LDL Cholesterol, Calc 92 HDL Cholesterol 50 25-OH Vitamin D Total 41.5 TSH 1.19 Ur Specific [place] 1.010 Urine Protein Negative Urine Glucose (UA) Negative Urine Blood Negative Urine Nitrite Negative Ur Leukocyte Esterase Trace H Microalb/Creat Ratio 7.3 Coding Level of Care Code Est Pt Level 4 (98046) Complex EM visit Add On G2211 Diagnoses Type 2 diabetes mellitus without complication, without long-term current use of insulin E11.9 Diabetes mellitus type: type 2 Diabetes mellitus community education specialist insulin use: without intermediate use Diabetes mellitus complication status: without complication Hypertriglyceridemia E78.1 Essential hypertension I10 Articular gout M10.9 Left-sided low back pain with left-sided sciatica, unspecified chronicity M54.42 Chronicity: unspecified Sciatica laterality: sciatica of left side Overweight (BMI 25.0-29.9) E66.3 Additional Codes PHQ-9 - 04115 - PHQ-9 Billing: Yes ([id number]) Assessment & Plan Assessment & Plan (1) Diabetes mellitus: Code(s): E11.9 - Type 2 diabetes mellitus without complications Category: Medical Qualifiers: Diabetes mellitus type: type 2 Diabetes mellitus intermediate insulin use: without intermediate use Diabetes mellitus complication status: without complication Qualified Code(s): E11.9 - Type 2 diabetes mellitus without complications Plan: Patient's HgbA1c went up slightly to 6.1% on his recent labs; was at 5.7% a few months ago - goal is at least <7.0% but ideally < 6.5% Patient states that he was on vacation for a couple of weeks recently when his sister came over from the [facility] to visit and he was not very compliant with his diet than States that he is now back on his usual diet - reinforced diabetic diet Continue Metformin 500 mg BID Will recheck his FBS and HgbA1c in 4 months for follow up (2) Hypertriglyceridemia: Code(s): E78.1 - Pure hyperglyceridemia Category: Medical Plan: Results of his labs done a few days ago reviewed and discussed with patient Reinforced low cholesterol diet Continue Gemfibrozil 600 mg QD Will recheck his labs and fasting lipids in 4 months for follow up (3) Essential hypertension: Code(s): I10 - Essential (primary) hypertension Category: Medical Plan: Reinforced low sodium diet; goal is systolic BP of 120 mm or less Continue Losartan 50 mg QD Patient is reminded to continue monitoring his blood pressure regularly (4) Articular gout: Code(s): M10.9 - Gout, unspecified Category: Medical Plan: His serum uric acid level is at 8.3 on his recent labs; was at 9.0 mg/dl a few months ago Patient again states that he's had no acute gout flare ups recently Reinforced low purine diet He was on Mitigare before but patient took it for about a month and then self- discontinued his medication Will rcontinue to monitor his serum uric acid level regularly (5) Left-sided low back pain with sciatica: Code(s): M54.42 - Lumbago with sciatica, left side Category: Medical Qualifiers: Chronicity: unspecified Sciatica laterality: sciatica of left side Qualified Code(s): M54.42 - Lumbago with sciatica, left side Plan: Lumbar spine x-rays done last year revealed (+) minimal degenerative disc disease at L5-S1; SI joint x-rays were normal He went to physical therapy for a while with (+) improvement of his symptoms States that his lower back has not been bothering him too much lately Will follow up with physical therapy as scheduled or as needed (goes to [facility] in [place] for his physical therapy - closer to home) States that he previously bought a massager and has been using it on his lower back lately which has been helping a lot (6) Overweight (BMI 25.0-29.9): Code(s): E66.3 - Overweight Category: Medical Plan: Reinforced diet/exercise as tolerated/lose weight Plan Follow up in 4 months Orders: Orders Complete Blood Count Auto Diff 4 Months D64.9 - Anemia, unspecified Uric Acid 4 Months M10.9 - Gout, unspecified Hemoglobin A1c 4 Months E11.9 - Type 2 diabetes mellitus without complications Lipid Panel 4 Months E78.00 - Pure hypercholesterolemia, unspecified Comprehensive [place]. Panel Fast 4 Months E78.00 - Pure hypercholesterolemia, unspecified UA CC w/rflx Micro + Cult 4 Months R30.0 - Dysuria Medications: Refilled gemfibrozil 600 mg PO BEDTIME 90 tabs 3RF 90 days losartan 50 mg PO DAILY 90 tabs 1RF 90 days metformin 500 mg PO BID 180 tabs 1RF E11.9 - Type 2 diabetes mellitus without complications
[2024-10-27 13:29] VITALS: BP 120/72; PULSE 72; O2SAT 96; BMI 29.1
== END 2024-10-27 14:08 | disposition home or self-care (01) ==
LOC: HO.HMCH 13:17
PROVIDERS: PCP Internal Medicine; Visit Provider Internal Medicine
DX: E11.9 Type 2 diabetes mellitus without complications (principal); E78.1 Pure hyperglyceridemia; I10 Essential (primary) hypertension; M10.9 Gout, unspecified; M54.42 Lumbago with sciatica, left side; E66.3 Overweight

== ENCOUNTER → 2024-10-27 13:16 | Outpatient (BNVA) | payer OTHER, SELFPAY | PROVIDERS: PCP Internal Medicine; Visit Provider Internal Medicine | DX: E11.9 Type 2 diabetes mellitus without complications (principal); E78.5 Hyperlipidemia, unspecified; I10 Essential (primary) hypertension; E78.1 Pure hyperglyceridemia; M10.9 Gout, unspecified; M54.42 Lumbago with sciatica, left side; E66.3 Overweight; Z68.29 Body mass index [BMI] 29.0-29.9, adult | CPT/HCPCS: 96127 ==

== ENCOUNTER 2025-02-24 07:45 | Outpatient (REF) | payer OTHER, SELFPAY ==
[2025-02-24 07:56] LABS: MANUAL DIFF FLAG NO
[2025-02-24 08:04] LABS: Hematocrit 46.7 % (42.0-52.0); Hemoglobin 15.9 g/dl (14.0-18.0); Imm Gran Abs Auto 0.02 X10*3/uL (0.00-0.03); Imm Gran Pct Auto 0.3 % (0.0-0.4); Lymphocytes Absolute Auto 2.4 X10*3/uL (1.2-4.9); Mean Corpuscular HGB Conc 34.0 g/dl (31.0-36.0); Mean Corpuscular Hemoglobin 28.6 pg (27.0-33.0); Mean Corpuscular Volume 84.1 fL (80.0-98.0); NRBC Abs Auto 0.000 X10*3/uL (0.0-0.012); NRBC Pct Auto 0.0 /100WBC (0.0-0.2); Platelet Count 312 X10*3/uL (160-400); Red Blood Count 5.55 X10*6/uL (4.60-5.80); White Blood Count 6.3 X10*3/uL (4.8-10.8)
[2025-02-24 08:29] LABS: Alanine Aminotransferase 37 U/L (0-40); Albumin Level 5.3 g/dL (3.5-5.0); Alkaline Phosphatase 71 U/L (39-117); Anion Gap 13 (12-20); Aspartate Amino Transferase 39 U/L (5-37); Blood Urea Nitrogen 14 mg/dL (9-16); Calcium 10.0 mg/dL (8.4-10.2); Carbon Dioxide 29 mmol/L (22-29); Chloride 106 mmol/L (96-108); Cholesterol 154 mg/dL (<200); Estimated Glomerular Filt Rate > 60; HDL Cholesterol 47 mg/dL (>40); Potassium 4.5 mmol/L (3.3-5.1); Sodium 143 mmol/L (135-145); Total Protein 7.9 g/dL (6.5-8.0); Triglycerides 71 mg/dL (<150); Uric Acid 9.5 mg/dL (3.4-7.0)
[2025-02-24 08:45] LABS: Appearance Urine Clear; Glucose Urine UA Negative (Negative); PH 5.5 (5.0-9.0); Specific Gravity - Urine 1.015 (1.005-1.025)
== END 2025-02-24 07:46 | disposition home or self-care (01) ==
LOC: HO.LAB 07:45
PROVIDERS: PCP Internal Medicine; Visit Provider Internal Medicine
DX: E11.9 Type 2 diabetes mellitus without complications (principal); D64.9 Anemia, unspecified; E78.00 Pure hypercholesterolemia, unspecified; M10.9 Gout, unspecified; R30.0 Dysuria
CPT/HCPCS: 36415; 80053; 80061; 81003; 83036; 84550; 85025

== ENCOUNTER 2025-03-01 09:50 | Outpatient (AMB) | payer OTHER, SELFPAY ==
[2025-03-01 10:05] VITALS: RESP 18; TEMP 36.4; BMI 29.3
--- NOTE | 2025-03-01 10:05 | MHC.PC.OV ---
Vital Signs 03/01/25 10:05 03/01/25 10:41 Height 5 ft 5 in 5 ft 5 in Weight 176 lb 6 oz BMI 29.3 BP 140/74 H Blood Pressure Location Lt brachial Lt brachial Position Sitting Sitting Respiration 18 18 Pulse 71 Pulse Source Pulse Oximeter Pulse Oximeter Temp 97.5 F Temp Source Temporal Artery Scan Temporal Artery Scan Pulse Oximetry (%) 98 Oxygen Delivery Method Room Air Room Air Intake Visit Reasons: DM, hyperlipidemia, HTN, gout Knitting Inspector Required: No Accompanied by: Self / Same As Patient Allergies No Known Allergies Allergy (Verified 03/01/25 11:20) Medication List - Last Reconciled 03/01/25 by Jarad Jones MD gemfibrozil 600 mg PO BEDTIME 90 days losartan 50 mg PO DAILY 90 days metformin 500 mg PO BID Tobacco use date assessed: 03/01/25 Dental Screening Dental Screen Date: 03/01/25 Did you have a dental visit in the last 12 months?: No Did you have a dental problem in the last 6 months where you did not have access to dental care?: No Was dental information given to patient?: Patient has dentist HPI DM, hyperlipidemia, HTN, gout HPI Details Patient comes in today for his follow up visit States that he feels okay He denies any headaches or dizziness Denies any chest pains, no increased SOB No nausea/vomiting, no abdominal pain No change in bowel habits noted He denies any acute flare ups of gout or any joint pains recently He had his follow up labs done a few days ago - to discuss his results [facility] Medical History Hyperuricemia Diabetes mellitus Essential hypertension Tubular adenoma Overweight (BMI 25.0-29.9) Left-sided low back pain with sciatica Hypertriglyceridemia Articular gout Surgical History H/O colonoscopy Family History Mother No problems noted. Father No problems noted. 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 1. Little interest or pleasure in doing things: not at all 2. Feeling down, depressed, or hopeless: not at all 3. Trouble falling or staying asleep, or sleeping too much: not at all 4. Feeling tired or having little energy: not at all 5. Poor appetite or overeating: not at all 6. Feeling bad about yourself - or that you are a failure or have let yourself or your family down: not at all 7. Trouble concentrating on things, such as reading the newspaper or watching television: not at all 8. Moving or speaking so slowly that other people could have noticed. Or the opposite - being so fidgety or restless that you have been moving around a lot more than usual: not at all 9. Thoughts that you would be better off or of hurting yourself in some way: not at all Total score: 0 Depression Screening Interpretation: Negative Depression Screening Done: Yes 39508 - PHQ-9 Billing: Yes Source: Developed by Drs. Torsten Gill, Jill Powell, Joesph Francisco and colleagues, with an educational lenny from [employer]. Thrive Questionnaire Date Thrive assessed: 03/01/25 I am a: Patient What is your living situation today?: I choose not to answer this question Within the past 12 months, did the food you bought not last and you didn't have the money to get more?: I choose not to answer this question Within the past 12 months, did you worry whether your food would run out before you got money to buy more?: I choose not to answer this question Do you have trouble paying for medicines?: I choose not to answer this question Do you have trouble getting transportation to medical appointments?: I choose not to answer this question Do you have trouble paying your heating and electricity bill?: I choose not to answer this question Do you have trouble taking care of your child, family member or friend?: I choose not to answer this question Do you have trouble with day-to-day activities such as bathing, preparing meals, shopping, managing finances, etc.?: I choose not to answer this question Are you currently unemployed and looking for a job?: I choose not to answer this question Are you interested in more education?: I choose not to answer this question Please select the resources that you would like help with: None Currently or been in a relationship where the following occur: I choose not to answer THRIVE Score: 0 AUDIT C Alcohol Use Questionnaire (AUDIT-C) 1. How often do you have a drink containing alcohol?: Monthly or less 2. How many drinks containing alcohol do you have on a typical day when you are drinking?: 1 or 2 3. How often do you have six or more drinks on one occasion?: Monthly Total Score: 3 Score Reviewed/Action Taken: Yes JULISSA-7 AMB Questionnaire JULISSA-7 Date JULISSA - 7 assessed: 03/01/25 Feeling nervous, anxious, or on edge: 0 = Not at all Not being able to stop or control worryin = Not at all Worrying too much about different things: 0 = Not at all Trouble relaxin = Not at all Being so restless that it is hard to sit still: 0 = Not at all Becoming easily annoyed or irritable: 0 = Not at all Feeling afraid as if something awful might happen: 0 = Not at all Total JULISSA-7 score (0-4 normal; 5-9 mild; 10-14 moderate; 15-21 severe): 0 Source: Developed by Drs. Torsten Gill, Jill Powell, Joesph Francisco and colleagues, with an educational lenny from [employer]. Review of Systems Const Denies chills, Reports difficulty sleeping (at times - mostly because he works night shifts), Denies fatigue, Denies fever(s) and Denies headache(s) ENT Denies dysphagia, Denies dizziness, Denies otalgia, Denies headache(s), Denies neck pain, Denies odynophagia and Denies sore throat Card Denies chest pain, Denies palpitations and Denies dyspnea Resp Denies chest congestion, Denies cough and Denies dyspnea GI Denies abdominal pain, Denies constipation, Denies dysphagia, Denies heartburn, Denies diarrhea, Denies nausea, Denies odynophagia and Denies vomiting Denies difficulty urinating, Denies dysuria, Denies nocturia and Denies urinary frequency Musc Reports back pain (on and off, over the lower back; mild), Denies arthralgias and Denies neck pain Skin/Breast Denies rash Neuro Denies dizziness and Denies headache(s) Endo Denies fatigue and Denies palpitations Physical exam (Primary Care) Vital Signs: Last Vital Signs Temp 97.5 F 03/01/25 10:05 Pulse 71 03/01/25 10:41 Resp 18 03/01/25 10:41 BP 140/74 H 03/01/25 10:41 Pulse Ox 98 03/01/25 10:41 Oxygen Delivery Method Room Air 03/01/25 10:41 BMI result Body Mass Index 29.3 Tobacco/Smoking Status: Tobacco use Status Tobacco use date assessed 03/01/25 03/01/25 10:06 Patient Tobacco Use Status Never used Tobacco 03/01/25 10:06 e-Cigarette/Vaping Use Never Used 03/01/25 10:06 PHQ-9: PHQ-9 Score PHQ-9: Total score 0 03/01/25 10:45 Depression Screening Interpretation: Negative Thrive Assessment: Date of Thrive Assessment Date Thrive assessed 03/01/25 03/01/25 10:06 Currently or been in a relationship where the following occur: I choose not to answer Const General: no acute distress and alert HENMT Ears: TM's normal bilaterally and EAC's normal Throat: Yes posterior oropharynx normal and Yes tonsils normal (no TP congestion) Neck Neck: Yes no lymphadenopathy and Yes supple Thyroid: Thyroid normal Resp Auscultation: clear to auscultation bilaterally, no rales and no wheezes Cardio Rate: regular rate Rhythm: regular rhythm Heart sounds: no murmurs GI Palpation (GI): Soft to palpation and nontender Auscultation: normal bowel sounds General: Yes no CVA tenderness Back/Spine/Pelvis Back: no CVA tenderness Thoracic/Lumbar Spine: lumbar spinal tenderness (mild) Skin Rashes: no rashes Extrem General: Yes no clubbing, cyanosis or edema Results Reviewed Results Reviewed: Laboratory Tests 02/24/25 02/24/25 07:49 07:55 WBC 6.3 Hgb 15.9 Hct 46.7 Plt Count 312 Sodium 143 Potassium 4.5 Creatinine 0.88 Estimated GFR > 60 Fasting Glucose 89 Hemoglobin A1c % 6.3 H Uric Acid 9.5 H Calcium 10.0 AST 39 H ALT 37 Triglycerides 71 Cholesterol 154 LDL Cholesterol, Calc 93 HDL Cholesterol 47 Ur Specific [place] 1.015 Urine Protein Negative Urine Glucose (UA) Negative Urine Blood Negative Urine Nitrite Negative Ur Leukocyte Esterase Negative Coding Level of Care Code Est Pt Level 4 (00673) Complex EM visit Add On G2211 Diagnoses Type 2 diabetes mellitus without complication, without long-term current use of insulin E11.9 Diabetes mellitus type: type 2 Diabetes mellitus prison insulin use: without termite control technician use Diabetes mellitus complication status: without complication Hypertriglyceridemia E78.1 Essential hypertension I10 Hyperuricemia E79.0 Left-sided low back pain with left-sided sciatica, unspecified chronicity M54.42 Chronicity: unspecified Sciatica laterality: sciatica of left side Overweight (BMI 25.0-29.9) E66.3 Additional Codes PHQ-9 - 95142 - PHQ-9 Billing: Yes ([id number]) Assessment & Plan Assessment & Plan (1) Diabetes mellitus: Code(s): E11.9 - Type 2 diabetes mellitus without complications Category: Medical Qualifiers: Diabetes mellitus type: type 2 Diabetes mellitus prison insulin use: without prison use Diabetes mellitus complication status: without complication Qualified Code(s): E11.9 - Type 2 diabetes mellitus without complications Plan: Patient's HgbA1c went up again slightly to 6.3% on his recent labs; was at 6.1% a few months ago - goal is at least <7.0% but ideally < 6.5% Reinforced diabetic diet As his HgbA1c has been gradually but consistently inching up over the past year, will increase his nighttime dose of Metformin He will now be taking Metformin 500 mg Q AM and 1000 mg Q PM - new Rx sent Will recheck his FBS and HgbA1c in 4 months for follow up (2) Hypertriglyceridemia: Code(s): E78.1 - Pure hyperglyceridemia Category: Medical Plan: Results of his labs done a few days ago reviewed and discussed with patient Reinforced low cholesterol diet Continue Gemfibrozil 600 mg QD Will recheck his labs and fasting lipids in 4 months for follow up (3) Essential hypertension: Code(s): I10 - Essential (primary) hypertension Category: Medical Plan: Reinforced low sodium diet; goal is systolic BP of 120 mm or less Have advised patient that his blood pressure is a little high today but states that he just got off work and has not gotten home to sleep yet Continue Losartan 50 mg QD Patient is reminded to continue monitoring his blood pressure regularly (4) Hyperuricemia: Code(s): E79.0 - Hyperuricemia without signs of inflammatory arthritis and tophaceous disease Category: Medical Plan: Have advised patient that his serum uric acid level has gone up again and is now back at 9.5 on his recent labs; was previously at 8.3 a few months ago Patient again denies any acute gout flare ups recently Reinforced low purine diet He was on Mitigare before but patient took it for about a month and then self-discontinued his medication Will start him for now on Allopurinol 100 mg QD Will continue to monitor his serum uric acid level regularly (5) Left-sided low back pain with sciatica: Code(s): M54.42 - Lumbago with sciatica, left side Category: Medical Qualifiers: Chronicity: unspecified Sciatica laterality: sciatica of left side Qualified Code(s): M54.42 - Lumbago with sciatica, left side Plan: Lumbar spine x-rays done last year revealed (+) minimal degenerative disc disease at L5-S1; SI joint x-rays were normal He went to physical therapy for a while with (+) improvement of his symptoms States that his lower back has not bothered him much lately Will follow up with physical therapy as scheduled or as needed (goes to [facility] in [place] for his physical therapy - closer to home) States that he previously bought a massager and has been using it on his lower back and this has also helped a lot (6) Overweight (BMI 25.0-29.9): Code(s): E66.3 - Overweight Category: Medical Plan: Reinforced diet/exercise as tolerated/lose weight Plan Follow up in 4 months Orders: Orders Uric Acid 4 Months M10.9 - Gout, unspecified UA CC w/rflx Micro + Cult 4 Months R30.0 - Dysuria Complete Blood Count Auto Diff 4 Months D64.9 - Anemia, unspecified Lipid Panel 4 Months E78.00 - Pure hypercholesterolemia, unspecified Microalbumin, Random (w Creat) 4 Months E11.9 - Type 2 diabetes mellitus without complications TSH reflex Free T4 4 Months E78.00 - Pure hypercholesterolemia, unspecified Comprehensive [place]. Panel Fast 4 Months E78.00 - Pure hypercholesterolemia, unspecified Hemoglobin A1c 4 Months E11.9 - Type 2 diabetes mellitus without complications Vitamin D 25-OH Total 4 Months E55.9 - Vitamin D deficiency, unspecified Medications: New allopurinol 100 mg PO DAILY 90 tabs 1RF 90 days E79.0 - Hyperuricemia without signs of inflammatory arthritis and tophaceous disease Changed From metformin 500 mg PO BID 180 tabs 1RF E11.9 - Type 2 diabetes mellitus without complications To metformin 500 mg in AM and 1000 mg in PM; 270 tabs 1RF 90 days E11.9 - Type 2 diabetes mellitus without complications
[2025-03-01 10:41] VITALS: BP 140/74; PULSE 71; RESP 18; O2SAT 98
== END 2025-03-01 11:31 | disposition home or self-care (01) ==
LOC: HO.HMCH 09:51
PROVIDERS: PCP Internal Medicine; Visit Provider Internal Medicine
DX: E11.9 Type 2 diabetes mellitus without complications (principal); E78.1 Pure hyperglyceridemia; I10 Essential (primary) hypertension; E79.0 Hyperuricemia without signs of inflammatory arthritis and tophaceous disease; M54.42 Lumbago with sciatica, left side; E66.3 Overweight

== ENCOUNTER → 2025-03-01 09:50 | Outpatient (BNVA) | payer OTHER, SELFPAY | PROVIDERS: PCP Internal Medicine; Visit Provider Internal Medicine | DX: E11.9 Type 2 diabetes mellitus without complications (principal); I10 Essential (primary) hypertension; M10.9 Gout, unspecified; E78.1 Pure hyperglyceridemia; M54.42 Lumbago with sciatica, left side; E66.3 Overweight; E78.00 Pure hypercholesterolemia, unspecified; Z68.29 Body mass index [BMI] 29.0-29.9, adult | CPT/HCPCS: 96127 ==